=== PATIENT | male | born 1945 | race Caucasian/White ===

== ENCOUNTER 2017-04-14 08:00 | Inpatient (IN) ==
[2017-04-21] MEDS ORDERED: Lactated Ringers 1,000 ML PRIMARY IV ONE ×2 (05:59→09:00)
[2017-04-21] MEDS ORDERED: ceFAZolin Inj 2gm (Premix) 2 GM/50 ML BAG IV ONE ×2 (05:59→06:00)
[2017-04-21] MEDS ORDERED: LIDOCAINE W/ SODIUM BICARB 0.5 ML SYR ONE (05:59)
[2017-04-21] MEDS ORDERED: Lactated Ringers 1,000 ML PRIMARY IV SCH ×2 (06:00→07:15)
[2017-04-21] MEDS ORDERED: LIDOCAINE W/ SODIUM BICARB 0.5 ML SYR SUBD ONE (06:00)
[2017-04-21] MEDS ORDERED: BUPivacaine Liposome/PF (Exparel) Inj 20ml vial INFIL ONE ×2 (06:00→06:42)
[2017-04-21] MEDS ORDERED: Tranexamic Acid 1,000 MG in Sodium Chloride 0.9% 100 ML IV SCH (06:00)
[2017-04-21 06:19] LABS: BILIRUBIN,URINE NEGATIVE (NEG); CLARITY,URINE CLEAR (CLEAR); COLOR,URINE YELLOW (Y); GLUCOSE, URINE (UA) NEGATIVE (NEG); OCCULT BLOOD,URINE NEGATIVE (NEG); PROTEIN,URINE NEGATIVE (NEG); UROBILINOGEN,URINE 0.2 EU/dL (0.2)
[2017-04-21] MEDS ORDERED: Sodium Chloride 0.9% vial 40 ML ONE (06:42)
[2017-04-21] MEDS ORDERED: HEPARIN 10,000 UNIT/1 ML ONE (06:42)
[2017-04-21] MEDS ORDERED: Gentamicin Inj 40 MG/ML VIAL ONE ×2 (06:42→07:31)
[2017-04-21 06:45] LABS: URINE SAMPLE TYPE CLEAN CATCH URINE
[2017-04-21] MEDS ORDERED: Sodium Chloride 0.9% 500 ML ONE ×2 (06:49→11:35)
[2017-04-21] MEDS ORDERED: Sodium Chloride 0.9% 2,000 ML ONE (06:49)
[2017-04-21] MEDS ORDERED: fentaNYL Inj 100 MCG/2 ML VIAL IVP PRN (07:07)
[2017-04-21] MEDS ORDERED: Ondansetron ODT Tab 8 MG TAB PO PRN ×2 (07:07→13:33)
[2017-04-21] MEDS ORDERED: HYDROmorphone 2 MG/1 ML IVP PRN ×2 (07:07→13:33)
[2017-04-21] MEDS ORDERED: ATROPINE SULFATE 0.4 MG/1 ML VIAL IVP PRN (07:07)
[2017-04-21] MEDS ORDERED: ONDANSETRON 4 MG/2 ML VIAL IVP PRN ×2 (07:07→13:33)
[2017-04-21] MEDS ORDERED: NORMAL SALINE 10 ML SYRINGE FLUSH IVP PRN ×2 (07:07→13:33)
[2017-04-21] MEDS ORDERED: TRANEXAMIC ACID 1,000 MG / 10 ML VIAL ONE (07:22)
[2017-04-21] MEDS ORDERED: MIDAZOLAM 5 MG/1 ML ONE (07:24)
[2017-04-21] MEDS ORDERED: KETAMINE 100 MG/1 ML - 5 ML ONE (07:24)
[2017-04-21] MEDS ORDERED: PROPOFOL 10 MG/1 ML (200 MG/20 ML) VIAL IV ONE (07:24)
[2017-04-21] MEDS ORDERED: fentaNYL Inj 250 MCG/5 ML VIAL ONE ×2 (07:24→09:00)
[2017-04-21] MEDS ORDERED: ROCURONIUM 10 MG/1 ML - 5 ML VIAL IVP ONE (07:25)
[2017-04-21] MEDS ORDERED: Sodium Chloride 0.9% vial 10 ML ONE (07:30)
[2017-04-21] MEDS ORDERED: Ketorolac Inj 30 MG, Morphine Inj 5 MG, BUPivacaine Inj 0.25% PF 150 MG SPLASH ONE ×3 (07:30)
[2017-04-21] MEDS ORDERED: ePHEDrine Inj 50 MG/ML AMP ONE (08:07)
[2017-04-21] MEDS ORDERED: GLYCOPYRROLATE 0.2 MG/1 ML VIAL ONE (11:30)
[2017-04-21] MEDS ORDERED: NEOSTIGMINE 1 MG/1 ML - 10 ML ONE (11:30)
[2017-04-21] MEDS ORDERED: ESMOLOL HCL 100 MG/10 ML VIAL ONE (11:33)
[2017-04-21] MEDS ORDERED: ONDANSETRON 4 MG/2 ML VIAL ONE (12:11)
--- NOTE | 2017-04-21 12:27 | CRNA.PROGR ---
Anesthesia Time - - Start date: 04/21/17 End date: 04/21/17 - Procedure/Recovery Time Anesthesia : Time In: 07:50 Anesthesia : Time Out: 12:03 Anesthesia : Total Time: 253 - Total Anesthesia Time Total Anesthesia Time (minutes): 253 - Other Weight: 100.698 kg Height: 5 ft 11 in Body Mass Index (BMI): 30.9 Physical Status: P2 (Age greater than 70, HTN) Anesthesia Type: General Anesthesia : ET
--- NOTE | 2017-04-21 12:28 | CRNA.PROGR ---
Anesthesia Recovery Phase I - Post Anesthesia Evaluation Patient's Condition on Arrival in Phase I: Stable Patient's Condition on Arrival in Phase II: Stable Pain Level: 2 (Treated for nausea. Received his orthopat blood back. Vitals stable. Did well.)
[2017-04-21] MEDS ORDERED: CALCIUM CARBONATE 500 MG (TUMS) CHEWABLE TABLET PO PRN (13:33)
[2017-04-21] MEDS ORDERED: Prochlorperazine Tab 10 MG TAB PO PRN (13:33)
[2017-04-21] MEDS ORDERED: diphenhydrAMINE 25 MG CAPSULE PO PRN (13:33)
[2017-04-21] MEDS ORDERED: LIDOCAINE HCL 2 % 10 ML JELLY URO-JECT TOPICAL PRN (13:33)
[2017-04-21] MEDS ORDERED: MAG HYDROX/AL HYDROX/SIMETH 30 ML SUSP PO PRN (13:33)
[2017-04-21] MEDS ORDERED: ACETAMINOPHEN 325 MG TABLET PO PRN (13:33)
[2017-04-21] MEDS ORDERED: BISACODYL 10 MG SUPPOSITORY RECTAL PRN (13:33)
--- NOTE | 2017-04-21 14:43 | ORTHO.OP ---
- - -: See Dictated Operative Report Procedure Codes - Hip Procedures Primary Hip Procedure: 41809 : SHOBHA (Natalia SAM assisted)
[2017-04-21] MEDS: HYDROcodone-APAP 7.5 MG-325 MG TABLET PO PRN ×2 (14:45→23:32)
--- NOTE | 2017-04-21 14:48 | ORTHO.PROG ---
Last Taken Vital Signs: Vital Signs - Last Taken Temperature 97.6 F 04/21/17 14:05 Pulse Rate 73 04/21/17 14:27 Respiratory Rate 18 04/21/17 14:27 Blood Pressure 163/93 04/21/17 14:27 Pulse Ox 96 04/21/17 14:27 Subjective: Patient notes hip feels numb Objective: Dressings clean and dry, NV intact Laboratory Results 04/21/17 04/21/17 Range/Units 06:10 06:30 Ur Collection Type Clean catch urine Urine Color Yellow (Y) Urine Clarity Clear (CLEAR) Urine pH 5.0 (5.0-8.5) Ur Specific [place] 1.025 (1.005-1.030) Urine Protein Negative (NEG) mg/dl Urine Glucose (UA) Negative (NEG) mg/dL Urine Ketones Negative (NEG) Urine Occult Blood Negative (NEG) Urine Nitrate Negative (NEG) Urine Bilirubin Negative (NEG) Urine Urobilinogen 0.2 (0.2) EU/dL Ur Leukocyte Esterase Negative (NEG) Blood Type A POSITIVE Antibody Screen Negative Vital Signs (24 hrs) Temp Pulse Pulse Resp BP BP Pulse Ox 04/21/17 14:27 73 18 163/93 96 04/21/17 14:05 97.6 F 65 16 163/82 98 04/21/17 13:50 97.6 F 69 16 166/93 98 04/21/17 13:45 97.5 F 70 18 143/80 97 04/21/17 13:35 97.5 F 70 18 143/80 97 04/21/17 13:15 97.4 F 90 20 152/78 98 04/21/17 13:05 64 20 147/78 98 04/21/17 12:55 63 15 157/83 98 04/21/17 12:45 66 13 152/76 98 04/21/17 12:38 76 04/21/17 12:35 67 16 166/82 98 04/21/17 12:25 90 21 160/90 100 04/21/17 12:20 96.8 F 75 15 150/84 97 04/21/17 12:10 106 H 28 H 131/99 91 04/21/17 12:05 87 30 H 140/85 97 04/21/17 12:00 97.8 F 95 29 H 123/78 96 04/21/17 06:26 98.3 F 78 16 173/107 96 Intake and Output - 8hrs 04/20/17 04/21/17 04/21/17 04/21/17 21:59 05:59 13:59 21:59 Intake: IV 4100 / 4100 Intake, Blood Product Amount 200 / 200 Output: Output, Drainage Amount 35 / 35 l hip 35 / 35 Output, Estimated Blood Loss 625 / 625 Amount Other: Drains Hemovac Negative Pressure Drain l hip Hemovac Weight 100.698 kg Weight Measurement Method Standing Scale Assessment: Left anterior total hip replacement Plan: Continue with pain control Anticoagulation with aspirin and pneumatics PWB 50 lbs on left for couple weeks
--- NOTE | 2017-04-21 15:03 | CONSULT ---
Consult Note - Consult Consult Date: 04/21/17 Reason for Consult: PostOp Consulation : Ortho Requesting Physician: Dr. Langley Primary Care Provider: HERBERT ASKEW HPI - History of Present Illness Date of Service: 04/21/17 Time of Service: 14:45 Chief Complaint: left hip pain History of Present Illness: This is a very pleasant 71 YO male that resides in [place], [place], with HTN, who presented with left hip pain and an anterior approach hip replacement. Please see Dr. Langley's post operative note regarding that procedure. The hospitalist service was consulted to help advise on and follow blood pressures. The patient denies any other medical issues. There are no complaints of chest pain, shortness of breath, or nausea or vomiting post operatively. The patient states his left hip is numb and he has not had any pain thus far. He had some dry heaves just after waking up and it has resolved now. No history of heart disease or kidney problems or stroke in the past. Patient tried Aleve, has had persistent pain over the last year, which is why proceeded with a hip replacement. He states he sees Dr. Kimball in [place], [place]. Outside of hypertension, patient does not have any other medical issues. Past Medical History Medical History: 1. Hypertension Surgical History: 1. Left hip surgery today. 2. Hernia repair. 3. History of vasectomy. Pertinent Family History: Father of cerebral hemorrhage in his 60s. Mother in her 90s due to heart attack. Past Social History: Does not smoke or drink. for 50 years. Has 2 healthy children. Used to work in the [employer] in [place], [place]. Retired. Tobacco Use: Never Smoker In the Past 12 Months, Have Used or Abuse Any of the Following Substance: None Alcohol Use: None Review of Systems - Respiratory Respiratory: REPORTS: Negative System Review - Cardiovascular Cardiovascular: REPORTS: Negative System Review - Gastrointestinal Gastrointestinal / Abdominal: REPORTS: Negative System Review, Other (Resolved dry heaves post surgery) - Genitourinary Genitourinary: REPORTS: Negative System Review - Musculoskeletal Musculoskeletal: REPORTS: See HPI - Neurological Neurologic: REPORTS: Negative System Review Medication / Allergies Home Medications: Home Medications 3 Medication Instructions Recorded Confirmed Type multivitamin tablet 1 tab PO DAILY 02/13/17 04/21/17 History glucosamine sulfate 500 mg tablet 1,000 mg PO BID tab 03/17/17 04/21/17 History naproxen sodium 220 mg tablet 440 mg PO BID tab 03/17/17 04/21/17 History hydrochlorothiazide 12.5 mg capsule 12.5 mg PO QDAY cap 04/13/17 04/21/17 History Allergies/Adverse Reactions: Allergies 3 Allergy/AdvReac Type Severity Reaction Status Date / Time No Known Allergies Allergy Verified 04/21/17 13:38 Exam - Vitals Vital Signs: Vital Signs Temperature 97.6 F Temperature Source Temporal Artery Scan Pulse Rate [Pulse Oximeter] 73 Pulse Rate 90 Respiratory Rate 18 Blood Pressure [Left Arm] 163/93 Blood Pressure 152/78 Pulse Ox 96 Oxygen Flow Rate 2 Oxygen Delivery Method Nasal Cannula Height 5 ft 11 in Weight 222 lb - General General Appearance: No Acute Distress, Cooperative - Head Head Exam: Normal Inspection, Normocephalic, Atraumatic - Eye Eye Exam: POSITIVE: No Scleral Icterus - ENT ENT Exam: POSITIVE: Mucous Membranes Moist - Neck Neck Exam: Normal Inspection - Respiratory Respiratory Exam: POSITIVE: Clear to Auscultation - Bilaterally, Breathing Non Labored - Cardiovascular Cardiovascular Exam: POSITIVE: RRR, No Murmur, No Clicks, No Gallops, No Rubs, No JVD - GI/Abdominal GI/Abdominal Exam: POSITIVE: Normal Bowel Sounds, Non Tender, Non Distended, Soft - Rectal Rectal Exam: POSITIVE: Deferred - External Exam: POSITIVE: Deferred Exam: POSITIVE: Deferred - Extremities Extremities Exam: POSITIVE: No Clubbing Present, No Edema Present, No Cyanosis Present Additional Extremities Exam Details: Left hip is dressed, dressing is clean, dry, intact - Neurological Neurological Exam: POSITIVE: Alert, Oriented x 3, No Facial Droop, Speech Intact / Clear - Psychiatric Psychiatric Exam: POSITIVE: Normal Affect, Normal Mood Results - Labs Additional Lab Results: Laboratory Results 04/21/17 04/21/17 Range/Units 06:10 06:30 Ur Collection Type Clean catch urine Urine Color Yellow (Y) Urine Clarity Clear (CLEAR) Urine pH 5.0 (5.0-8.5) Ur Specific [place] 1.025 (1.005-1.030) Urine Protein Negative (NEG) mg/dl Urine Glucose (UA) Negative (NEG) mg/dL Urine Ketones Negative (NEG) Urine Occult Blood Negative (NEG) Urine Nitrate Negative (NEG) Urine Bilirubin Negative (NEG) Urine Urobilinogen 0.2 (0.2) EU/dL Ur Leukocyte Esterase Negative (NEG) Blood Type A POSITIVE Antibody Screen Negative Assessment and Plan - Patient Problems (1) Hypertension Current Visit: Yes Status: Acute Code(s): I10 - Essential (primary) hypertension Qualifiers: Hypertension type: essential hypertension Qualified Code(s): I10 - Essential (primary) hypertension (2) Arthritis of left hip Current Visit: No Status: Acute Code(s): M16.12 - Unilateral primary osteoarthritis, left hip - Assessment / Plan Additional Assessment/Plan Details: I think at this point, be okay to continue hydrochlorothiazide, and I will make sure it's ordered. We'll monitor blood pressures. Pain management for left hip. DVT prophylaxis as per Dr. Langley. PT and OT. Labs ordered for tomorrow. Thank you for this consult, will be our pleasure to continue to monitor patient' s blood pressures and help advise on management through the patient's hospital stay.
[2017-04-21] MEDS: ceFAZolin Inj 2gm (Premix) 2 GM/50 ML BAG IV SCH ×2 (16:09→23:33)
[2017-04-21] MEDS: Lactated Ringers 1,000 ML PRIMARY IV SCH (19:58)
[2017-04-21] MEDS: DOCUSATE 100 MG CAPSULE PO SCH (20:00)
[2017-04-21] MEDS ORDERED: ceFAZolin Inj 2gm (Premix) 2 GM/50 ML BAG IV SCH (21:30)
--- NOTE | 2017-04-22 00:25 | DI ---
XR HIP COMPLETE MIN 2VW U/L,04/21/2017 11:47 AM: Clinical History: Status post left total hip arthroplasty. Previous Exam: February 03, 2017 Findings: AP and crosstable views of the left hip are obtained, and demonstrate postsurgical changes consistent with a left total hip arthroplasty. There is near complete loss of the joint space of the right hip with osteophyte formation. There is m ild osteopenia. Overlying skin annemarie are seen. Impression: Status post left total hip arthroplasty. Advanced degenerative changes of the right hip.
[2017-04-22 05:45] LABS: Hematocrit [HCT] 34.2 % (42.0-52.0); Hemoglobin [HGB] 11.1 g/dL (14.0-18.0); MEAN CORPUSCULAR HEMOGLOBIN 29.5 PG (27-31); MEAN CORPUSCULAR HGB CONC 32.5 g/dL (33-37); MEAN PLATELET VOLUME 9.8 FL (7.4-12.2); RED BLOOD COUNT 3.76 10^6/uL (4.70-6.10)
[2017-04-22 05:56] LABS: BLOOD UREA NITROGEN 20 mg/dL (7-22)
[2017-04-22] MEDS: HYDROcodone-APAP 7.5 MG-325 MG TABLET PO PRN ×5 (06:12→22:01)
[2017-04-22] MEDS: HYDROCHLOROTHIAZIDE 12.5 MG CAPSULE PO SCH (07:08)
[2017-04-22] MEDS: Lactated Ringers 1,000 ML PRIMARY IV SCH (07:08)
--- NOTE | 2017-04-22 07:59 | ORTHO.PROG ---
Last Taken Vital Signs: Vital Signs - Last Taken Temperature 99.1 F 04/22/17 07:16 Pulse Rate 100 04/22/17 07:16 Respiratory Rate 16 04/22/17 07:16 Blood Pressure 122/77 04/22/17 07:16 Pulse Ox 95 04/22/17 07:16 Subjective: Patient with good pain control Objective: Dressings are clean and dry. Hemovac with what sounds like a small slow leak. Motor and sensory exam of the lower extremity is normal with no calf, popliteal adductor hiatus or pain. No significant swelling or edema Laboratory Results 04/22/17 04/22/17 Range/Units 05:30 05:30 WBC 13.87 H (4.8-10.8) 10^3/uL RBC 3.76 L (4.70-6.10) 10^6/uL Hgb 11.1 L (14.0-18.0) g/dL Hct 34.2 L (42.0-52.0) % MCV 91.0 H (80-90) FL MCH 29.5 (27-31) PG MCHC 32.5 L (33-37) g/dL RDW Std Deviation 43.1 (39-50) fL RDW Coeff of Mahesh 13.4 (11.5-14.5) % Plt Count 175 (140-350) 10*3/uL MPV 9.8 (7.4-12.2) FL Sodium 134 L (135-145) meq/L Potassium 4.1 (3.8-5.2) meq/L Chloride 103 (98-112) meq/L Carbon Dioxide 24 (23-33) meq/L Anion Gap 7 (5-20) BUN 20 (7-22) mg/dL Creatinine 0.8 (0.70-1.50) mg/dL BUN/Creatinine Ratio 25.00 H (6-20) Glucose 139 H (78-110) mg/dL Calculated Osmolality 282.0 (267-292) mOsm/kg Calcium 8.0 L (8.7-10.7) mg/dL Intake and Output - 8hrs 04/21/17 04/21/17 04/22/17 04/22/17 13:59 21:59 05:59 13:59 Intake: IV 4100 / 4100 340 / 340 989 / 989 Intake Oral Amount 1800 / 1800 1000 / 1000 Intake, Blood Product Amount 200 / 200 Output: Output, Drainage Amount 35 / 35 90 / 90 230 / 230 Left Hip 90 / 90 230 / 230 l hip 35 / 35 Output, Urine Amount 250 / 250 750 / 750 Output, Estimated Blood Loss 625 / 625 Amount Other: Percent Meal Consumed Dinner Refused Drains Hemovac Negative Pressure Drain l hip Hemovac Weight 100.698 kg 103.147 kg Weight Measurement Method Standing Scale Standing Scale Vital Signs (24 hrs) Temp Pulse Pulse Pulse Resp BP BP 04/22/17 07:16 99.1 F 100 16 122/77 04/22/17 04:20 04/22/17 04:02 97.4 F 100 20 132/98 04/22/17 00:14 97.6 F 79 20 152/90 04/21/17 20:09 97.0 F 91 20 139/88 04/21/17 19:00 16 04/21/17 15:47 97.4 F 94 20 141/86 04/21/17 15:09 91 16 157/90 04/21/17 14:46 04/21/17 14:27 73 18 163/93 04/21/17 14:05 97.6 F 65 16 163/82 04/21/17 13:50 97.6 F 69 16 166/93 04/21/17 13:45 97.5 F 70 18 143/80 04/21/17 13:35 97.5 F 70 18 143/80 04/21/17 13:34 70 18 04/21/17 13:15 97.4 F 90 20 152/78 04/21/17 13:05 64 20 147/78 04/21/17 12:55 63 15 157/83 04/21/17 12:45 66 13 152/76 04/21/17 12:38 76 04/21/17 12:35 67 16 166/82 04/21/17 12:25 90 21 160/90 04/21/17 12:20 96.8 F 75 15 150/84 04/21/17 12:10 106 H 28 H 131/99 04/21/17 12:05 87 30 H 140/85 04/21/17 12:00 97.8 F 95 29 H 123/78 Pulse Ox 04/22/17 07:16 95 04/22/17 04:20 92 0207/18 04:02 94 04/22/17 00:14 97 04/21/17 20:09 96 04/21/17 19:00 04/21/17 15:47 94 04/21/17 15:09 92 04/21/17 14:46 92 04/21/17 14:27 96 04/21/17 14:05 98 04/21/17 13:50 98 04/21/17 13:45 97 04/21/17 13:35 97 04/21/17 13:34 04/21/17 13:15 98 04/21/17 13:05 98 04/21/17 12:55 98 04/21/17 12:45 98 04/21/17 12:38 04/21/17 12:35 98 04/21/17 12:25 100 04/21/17 12:20 97 04/21/17 12:10 91 04/21/17 12:05 97 04/21/17 12:00 96 Assessment: Left anterior total hip replacement doing well Plan: At this point we are going to switch the suction device out from a new kit since it seems like the pancake is slowly leaking out. We will likely only keep this for another 6-8 hours before we remove the drain. Think we want to keep this in place at the current time patient will progress with physical therapy and occupational therapy pain control as been good with oral medications. We will continue with DVT prophylaxis.
[2017-04-22] MEDS: POLYETHYLENE GLYCOL 3350 17 GM POWDER PO SCH (08:32)
[2017-04-22] MEDS: DOCUSATE 100 MG CAPSULE PO SCH ×2 (08:33→22:01)
[2017-04-22] MEDS: ASPIRIN 325 MG EC TABLET PO SCH ×2 (08:33→22:01)
[2017-04-22] MEDS: Multivitamin Tab 1 TAB PO SCH (08:33)
--- NOTE | 2017-04-22 10:16 | PTI REPORT ---
Thank you for the referral of Paul Ochoa. He was seen on 04/21/17 for an inpatient evaluation status post left anterior total hip arthroplasty. SUBJECTIVE: The patient is a 71-year-old male who was referred by Dr. Langley secondary to a left anterior approach total hip arthroplasty. The patient has four stairs at home that he must negotiate. He does have a that will be available to him 06/10 when he does go home. PAST MEDICAL HISTORY: Past medical history can be found in the patient's medical record. OBJECTIVE FINDINGS: Pain: The patient rates his pain as a 2/10 on the verbal analog scale (0=no pain , 10=worst pain). Bed mobility: The patient was able to come from supine to sit with minimal assistance. Transfers: The patient was able to transfer from sit to stand with minimal assistance. Ambulation: We discussed the patient's partial weight-bearing status. He has his own walker. We did provide one without wheels to start with. He ambulated to the restroom with partial weight-bearing precautions and back. He was able to stand for a couple of minutes. ASSESSMENT: The patient is an excellent candidate for rehab and will do very well in the long term care pharmacist and short term. Problem List: Pain in the left hip Decreased passive and active range of motion in the left hip Decreased strength in the left hip Short-Term Goals: To be met by discharge from inpatient: Patient will be able to transfer from bed to stand independently. Patient will be able to ambulate approximately 100 feet with walker, weight- bearing as tolerated. Patient will be able to ascend and descend five stairs with walker, weight- bearing as tolerated. Long-Term Goals: To be met following discharge from inpatient: Patient may be seen by outpatient physical therapy. TREATMENT PLAN: Patient will be seen B.I.D during the week and one time per day over the weekend as an inpatient to address the above goals and objectives. INITIAL TREATMENT: Treatment today consisted of the initial evaluation. The patient was very interested in going to the restroom to void. With minimal assistance the patient came to a standing position; his pain remained the same. He ambulated to the restroom with partial weight-bearing precautions and back. He was able to stand for a couple of minutes. He was returned to his bed in good condition. DEMETRA
--- NOTE | 2017-04-22 13:02 | CRNA.PROGR ---
Anesthesia Note - Progress Notes Anesthesia Progress Note: Lying in bed watching TV. Awake, alert, cheerful. Describes pain as under control. Has been down to Physical Therapy, ambulated. Never had to be catheterized. He describes urine output as "Frequent". Laboratory Results 04/22/17 04/22/17 Range/Units 05:30 05:30 WBC 13.87 H (4.8-10.8) 10^3/uL RBC 3.76 L (4.70-6.10) 10^6/uL Hgb 11.1 L (14.0-18.0) g/dL Hct 34.2 L (42.0-52.0) % MCV 91.0 H (80-90) FL MCH 29.5 (27-31) PG MCHC 32.5 L (33-37) g/dL RDW Std Deviation 43.1 (39-50) fL RDW Coeff of Mahesh 13.4 (11.5-14.5) % Plt Count 175 (140-350) 10*3/uL MPV 9.8 (7.4-12.2) FL Sodium 134 L (135-145) meq/L Potassium 4.1 (3.8-5.2) meq/L Chloride 103 (98-112) meq/L Carbon Dioxide 24 (23-33) meq/L Anion Gap 7 (5-20) BUN 20 (7-22) mg/dL Creatinine 0.8 (0.70-1.50) mg/dL BUN/Creatinine Ratio 25.00 H (6-20) Glucose 139 H (78-110) mg/dL Calculated Osmolality 282.0 (267-292) mOsm/kg Calcium 8.0 L (8.7-10.7) mg/dL Vital Signs - Last Taken Temperature 99.1 F 04/22/17 12:35 Pulse Rate 114 H 04/22/17 12:35 Respiratory Rate 18 04/22/17 12:35 Blood Pressure 148/81 04/22/17 12:35 Pulse Ox 94 04/22/17 12:35 Denies breathing difficulties or nausea. No apparent anesthetic difficulties.
--- NOTE | 2017-04-22 13:52 | PDOC(PROG) ---
Date and Time of Service: 04/22/2017, 1445 Interval History: No complaints of chest pain or shortness of breath. It was noticed that he was tachycardic during physical therapy, but he does not complain of palpitations or chest pain or syncopal or presyncopal episodes. He has not had any of that prior to surgery. No fevers or chills. He does state that he's had 6-8 months of constipation. He'll have 3-4 days of constipation and then he notices he'll have a diarrheal bowel movement. He has not had any screening colonoscopy or thyroid testing done to my knowledge. In terms of the hip surgery, he is doing well with therapy to this point. His blood sugar was notably elevated, we'll get hemoglobin A1c tomorrow. He states his pre-surgery labs were normal. Objective : Data - Labs CBC and BMP: 04/22/17 05:30 04/22/17 05:30 Objective : Exam - General General Appearance: No Acute Distress, Cooperative Additional General Exam Details: Vital Signs - Last Taken Temperature 99.1 F 04/22/17 12:35 Pulse Rate 114 H 04/22/17 12:35 Respiratory Rate 18 04/22/17 12:35 Blood Pressure 148/81 04/22/17 12:35 Pulse Ox 94 04/22/17 12:35 - Eye Eye Exam: No Scleral Icterus - ENT ENT Exam: Mucous Membranes Moist - Respiratory Respiratory Exam: Clear to Auscultation - Bilaterally, Breathing Non Labored - Cardiovascular Cardiovascular Exam: No Murmur, No Clicks, No Gallops, No Rubs, Tachycardia - GI/Abdominal GI/Abdominal Exam: Normal Bowel Sounds, Non Tender, Non Distended, Soft - Extremities Extremities Exam: No Clubbing Present, No Edema Present, No Cyanosis Present - Neurological Neurological Exam: Alert, Oriented x 3, No Facial Droop, Speech Intact / Clear - Integumentary Additional Integumentary Exam Details: Normal skin turgor. Assessment and Plan - Patient Problems (1) Tachycardia Current Visit: Yes Status: Acute Code(s): R00.0 - Tachycardia, unspecified (2) Hypertension Current Visit: Yes Status: Acute Code(s): I10 - Essential (primary) hypertension Qualifiers: Hypertension type: essential hypertension Qualified Code(s): I10 - Essential (primary) hypertension (3) Arthritis of left hip Current Visit: No Status: Acute Code(s): M16.12 - Unilateral primary osteoarthritis, left hip (4) Chronic constipation Current Visit: Yes Status: Chronic Code(s): K59.09 - Other constipation - Assessment / Plan Additional Assessment/Plan Details: Check a TSH and free T4 with the chronic constipation, the patient should also have a colonoscopy as he has not had any screening for colon cancer per his history. He states he has a family history of chronic constipation. We'll arrange an appointment to evaluate for screening colonoscopy and chronic constipation in the outpatient setting in about 6 weeks to allow the patient to fill up from his hip surgery first. I will get a hemoglobin A1c in the morning. The tachycardia may be related to pain. But we will monitor the patient with telemetry to make sure we are not seeing anything that might suggest a tachybradycardia syndrome. He does not have any symptoms of syncopal or presyncopal nature. Doubt pulmonary emboli or DVT. No evidence of infection. He is not dehydrated on exam and appears euvolemic. PT and OT. DVT prophylaxis as per orthopedics.
--- NOTE | 2017-04-22 15:21 | PT.PROG ---
Progress Note Progress Note: S. Patient stated that he is feeling a little dizzy this afternoon. O. Patient ambulated 30 feet to the wheelchair and was wheeled to the therapy gym where he had heat and performed supine exercises in the form of; heel slides , quad sets, ankle pumps (red), short arc quads, seated long arc quads, heel toe raises and sit to stands all x 10 bilaterally. Patient ambulated 80 feet to the wheelchair and was returned to his room where he was left on the edge of bed with alarm and call light. A. Patient tolerated therapy fair, he requires min assist with supine to sit transfer, he was able to perform all exercises with no complaints. He would continue to benefit from skilled therapy to increase strength, mobility and endurance. P. Continue POC.
[2017-04-23] MEDS: HYDROcodone-APAP 7.5 MG-325 MG TABLET PO PRN ×3 (01:35→20:25)
[2017-04-23] MEDS: HYDROCHLOROTHIAZIDE 12.5 MG CAPSULE PO SCH (06:44)
[2017-04-23] MEDS ORDERED: LIDOCAINE HCL 2 % 10 ML JELLY URO-JECT TOPICAL PRN (07:14)
[2017-04-23 07:16] LABS: Hematocrit [HCT] 34.8 % (42.0-52.0); Hemoglobin [HGB] 11.4 g/dL (14.0-18.0); MEAN CORPUSCULAR HEMOGLOBIN 30.1 PG (27-31); MEAN CORPUSCULAR HGB CONC 32.8 g/dL (33-37); MEAN CORPUSCULAR VOLUME 91.8 FL (80-90); MEAN PLATELET VOLUME 10.6 FL (7.4-12.2); RED BLOOD COUNT 3.79 10^6/uL (4.70-6.10)
[2017-04-23 08:15] LABS: BLOOD UREA NITROGEN 20 mg/dL (7-22)
[2017-04-23] MEDS: Multivitamin Tab 1 TAB PO SCH (08:50)
[2017-04-23] MEDS: BISACODYL 5 MG TABLET PO PRN (08:50)
[2017-04-23] MEDS: DOCUSATE 100 MG CAPSULE PO SCH ×2 (08:50→20:25)
[2017-04-23] MEDS: POLYETHYLENE GLYCOL 3350 17 GM POWDER PO SCH (08:50)
[2017-04-23] MEDS: ASPIRIN 325 MG EC TABLET PO SCH (08:50)
[2017-04-23] MEDS: TAMSULOSIN 0.4 MG CAPSULE PO SCH (08:50)
[2017-04-23 09:09] LABS: HEMOGLOBIN A1C 5.69 % (4.2-6.0)
--- NOTE | 2017-04-23 09:31 | OTI REPORT ---
Thank you for the referral of Paul Ochoa. He was seen on 04/22/17 for an occupational therapy inpatient evaluation status post left total hip arthroplasty. SUBJECTIVE: The patient is a 71-year-old male who had a total hip arthroplasty. Prior to admission the patient lived in [place] and was independent with all of his activities of daily living and functional activities. He states he was independent with dressing himself and getting around his home as well as driving. The patient reports that he has a higher toilet as well as a bathtub/ shower combination. The patient does not know if he wants a shower chair yet. PAST MEDICAL HISTORY: Past medical history can be found in the patient's medical record. OBJECTIVE FINDINGS: Bed mobility: Today the patient was able to come from supine to sit with min assist. Activities of daily living: While sitting edge of bed we attempted dressing tasks. The patient required min assist. He was issued a artist model and a sock aide and instructed in their use. The patient was educated to dress his left lower extremity first. He needed min assist with the sock aide. The patient was also issued a long handled shoe horn as well as a bath sponge for independence with ADLs at home. ASSESSMENT: The patient would benefit from at least one more session to go over equipment use. Short-Term Goals: To be met by discharge from inpatient: Patient will be able to dress self independently with use of adaptive equipment. Patient will be able to improve his functional transfers to stand by assist. Patient will demonstrate good knowledge of hip precautions during all functional transfers and ADLs. Long-Term Goals: To be met following discharge from inpatient: Patient will return home, demonstrating safety and independence with all functional activities of daily living and transfers. TREATMENT PLAN: Patient will be seen B.I.D during the week and one time per day over the weekend as an inpatient to address the above goals and objectives. INITIAL TREATMENT: Treatment today consisted of the initial evaluation followed by bed mobility, instruction in adaptive equipment, and trial of adaptive equipment. The patient still needed min assist with the artist model and with his balance when standing. The patient was educated in his hip precautions. He did not know that he could not complete straight leg raises per his report. MTDD
--- NOTE | 2017-04-23 13:25 | ORTHO.PROG ---
Last Taken Vital Signs: Vital Signs - Last Taken Temperature 97.8 F 04/23/17 11:05 Pulse Rate 108 H 04/23/17 11:05 Respiratory Rate 20 04/23/17 11:05 Blood Pressure 167/95 04/23/17 11:05 Pulse Ox 95 04/23/17 11:05 Subjective: Patient notes if he is good no chest pain shortness of breath benefits and having an elevated pulse rate Objective: Examination shows that the patient has his dressing in place there is no evidence of infection there is no active drainage his PREVENA suction dressing is in place with no active issues he denies any calf, popliteal adductor hiatus or thigh pain. Laboratory Results 04/23/17 04/23/17 04/23/17 Range/Units 06:59 06:59 06:59 WBC 16.56 H (4.8-10.8) 10^3/uL RBC 3.79 L (4.70-6.10) 10^6/uL Hgb 11.4 L (14.0-18.0) g/dL Hct 34.8 L (42.0-52.0) % MCV 91.8 H (80-90) FL MCH 30.1 (27-31) PG MCHC 32.8 L (33-37) g/dL RDW Std Deviation 44.3 (39-50) fL RDW Coeff of Mahesh 13.6 (11.5-14.5) % Plt Count 188 (140-350) 10*3/uL MPV 10.6 (7.4-12.2) FL Sodium 136 (135-145) meq/L Potassium 4.1 (3.8-5.2) meq/L Chloride 100 (98-112) meq/L Carbon Dioxide 27 (23-33) meq/L Anion Gap 9 (5-20) BUN 20 (7-22) mg/dL Creatinine 0.8 (0.70-1.50) mg/dL BUN/Creatinine Ratio 25.00 H (6-20) Glucose 134 H (78-110) mg/dL Mean Blood Glucose 103.477 mg/dL Hemoglobin A1c 5.69 (4.2-6.0) % Calculated Osmolality 286.0 (267-292) mOsm/kg Calcium 8.6 L (8.7-10.7) mg/dL TSH (0.2700-4.2000) uIU/mL Free T4 (0.93-1.71) ng/dL 04/23/17 Range/Units 06:59 WBC (4.8-10.8) 10^3/uL RBC (4.70-6.10) 10^6/uL Hgb (14.0-18.0) g/dL Hct (42.0-52.0) % MCV (80-90) FL MCH (27-31) PG MCHC (33-37) g/dL RDW Std Deviation (39-50) fL RDW Coeff of Mahesh (11.5-14.5) % Plt Count (140-350) 10*3/uL MPV (7.4-12.2) FL Sodium (135-145) meq/L Potassium (3.8-5.2) meq/L Chloride (98-112) meq/L Carbon Dioxide (23-33) meq/L Anion Gap (5-20) BUN (7-22) mg/dL Creatinine (0.70-1.50) mg/dL BUN/Creatinine Ratio (6-20) Glucose (78-110) mg/dL Mean Blood Glucose mg/dL Hemoglobin A1c (4.2-6.0) % Calculated Osmolality (267-292) mOsm/kg Calcium (8.7-10.7) mg/dL TSH 0.785 (0.2700-4.2000) uIU/mL Free T4 1.17 (0.93-1.71) ng/dL Assessment: Left anterior total hip replacement doing well Anemia Urinary retention/past history of urinary retention around surgery Plan: Patient from an orthopedic standpoint seems to be doing well. Patient has had an intermittently elevated pulse and there is a concern about possible intermittent showering and lungs and CT scan has been ordered to rule out any evidence of pulmonary embolism. As far as the urinary changes. He is have this problem in the past 20 placed a Cheek this morning and we'll keep this in for a week have started him on Flomax and then we'll discontinue the catheter. We will have the patient continue with the PREVENA dressing at the current time until follow-up.
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
[2017-04-23 15:12] LABS: BASOPHILS # (AUTO) 0.02 10*3/UL; BASOPHILS % (AUTO) 0.1 % (0-1); EOSINOPHILS # (AUTO) 0.16 10*3/UL; Hematocrit [HCT] 33.2 % (42.0-52.0); Hemoglobin [HGB] 10.9 g/dL (14.0-18.0); LYMPHOCYTES # (AUTO) 1.59 10*3/uL; MEAN CORPUSCULAR HEMOGLOBIN 30.2 PG (27-31); MEAN CORPUSCULAR HGB CONC 32.8 g/dL (33-37); MEAN PLATELET VOLUME 9.9 FL (7.4-12.2); MONOCYTES # (AUTO) 1.63 10*3/UL (0.3-0.8); MONOCYTES % (AUTO) 10.6 % (5-15); NEUTROPHILS # (AUTO) 11.94 10*3/UL; NEUTROPHILS % (AUTO) 77.7 % (50-80); RED BLOOD COUNT 3.61 10^6/uL (4.70-6.10)
[2017-04-23 15:18] LABS: PLATELET MORPHOLOGY COMMENT NORMAL MORPHOLOGY (NORM); RBC MORPHOLOGY COMMENT NORMAL MORPHOLOGY (NORM); WBC MORPHOLOGY COMMENT NORMAL MORPHOLOGY (NORM)
--- NOTE | 2017-04-23 15:44 | PT AM DAY ---
Diagnosis : Left Total Hip Arthroplasty AM - Physical Therapy S: The patient reports no new changes. O: The patient ambulated all the way to the therapy department after participating with occupational therapy. He received an application of moist heat pack x20 minutes including set up to the left hip. We worked on some transfer techniques and mat mobility. We worked on sit to stands and practiced stepping up on a 6" box. We worked on transfers and he was able to ambulate six steps in the hallway with verbal cueing. A: The patient is a little bit impulsive at times, but when he pays attention he does well. He does have plans to go to [place] with his and his daughter broadcast producer for help. Under these conditions he will probably be quite safe. He is currently at a catheter place and has some other medical issues that may detain him from leaving today. P: Continue seeing patient BID during the week and one time per day over the weekend for transfers, ambulation, and range of motion/strengthening exercises. DEMETRA
[2017-04-23] MEDS: ENOXAPARIN SODIUM 100 MG/1 ML SYRINGE SUBCUT SCH (15:47)
--- NOTE | 2017-04-23 18:25 | DI ---
CT [facility],04/23/2017 11:08 AM: Clinical History: Tachycardia status post surgery. Rule out pulmonary embolism. Previous Exam: None at this facility. Findings: Multiple helically acquired CT images are obtained through the chest following a CT angiogram protoco l, and demonstrate a small filling defect within the left posterior lower lobe branch of the pulmonar y arteries consistent with a small pulmonary embolism. There is subsegmental atelectasis in the lung bases. There is dense pleural calcifications involving the posterior right pleura. There is calcified granuloma within the right lung base. The aorta is unremarkable. Impression: Small left lower lobe branch pulmonary embolism.
--- NOTE | 2017-04-23 18:54 | PDOC(PROG) ---
"Date and Time of Service: 04/23/2017, 1850 Interval History: No complains of chest pain or shortness breath. Still requiring minimal oxygen. Still tachycardic type CT scan and found small pulmonary emboli in left lobe of lung. I disclosed and discussed with patient. The patient and I spoke in depth regarding Coumadin versus Xarelto versus Eliquis, including all risks and benefits, risks being bleeding complications and possible pitfalls of not being able to reverse bleeding with antidotes, and benefits cream treatment of blood clot, lack of drug interactions, and ease of therapy in terms of lab monitoring. The patient's life is present as well. They feel that based on her frontal situation, they would offer Coumadin at this time. | Discussed with orthopedics, and we are a little nervous about potential bleeding so we will keep the patient. While initiating therapy for pulmonary emboli. The patient for close that is low the knee DVT in relation to a hernia surgery in the past. He states his hip pain is controlled. And is doing well with therapy. Was written for the Cheek catheter last night but finally did consent and agreed to have it placed. No results on constipation yet, but somewhat reluctant on enema. Objective : Data - Labs CBC and BMP: 04/23/17 15:10 04/23/17 06:59 Objective : Exam - General General Appearance: No Acute Distress, Cooperative Additional General Exam Details: Vital Signs (24 hrs) Temp Pulse Pulse Resp BP Pulse Ox 04/23/17 15:57 98.3 F 112 H 19 153/93 96 04/23/17 15:00 115 H 04/23/17 11:05 97.8 F 108 H 20 167/95 95 04/23/17 11:00 105 H 04/23/17 07:12 97.6 F 97 20 173/92 94 04/23/17 07:00 97 04/23/17 04:35 98.2 F 103 H 22 149/87 95 04/23/17 03:30 90 04/23/17 03:00 104 H 04/22/17 23:00 98.5 F 88 88 20 153/82 93 04/22/17 19:55 98.9 F 106 H 21 141/90 91 04/22/17 19:30 105 H 97 - Eye Eye Exam: No Scleral Icterus - Respiratory Respiratory Exam: Clear to Auscultation - Bilaterally, Breathing Non Labored - Cardiovascular Cardiovascular Exam: RRR, No Murmur, No Clicks, No Gallops, No Rubs, No JVD - GI/Abdominal GI/Abdominal Exam: Normal Bowel Sounds, Non Tender, Non Distended, Soft - Extremities Extremities Exam: No Clubbing Present, No Edema Present, No Cyanosis Present Additional Extremities Exam Details: Right hip dressing, clean, dry, intact - Neurological Neurological Exam: Alert, Oriented x 3, No Facial Droop, Speech Intact / Clear Assessment and Plan - Patient Problems (1) Acute pulmonary embolism Current Visit: Yes Status: Acute Code(s): I26.99 - Other pulmonary embolism without acute cor pulmonale Qualifiers: Pulmonary embolism type: other Acute cor pulmonale presence: without acute cor pulmonale Qualified Code(s): I26.99 - Other pulmonary embolism without acute cor pulmonale (2) Tachycardia Current Visit: Yes Status: Acute Code(s): R00.0 - Tachycardia, unspecified (3) Hypertension Current Visit: Yes Status: Acute Code(s): I10 - Essential (primary) hypertension Qualifiers: Hypertension type: essential hypertension Qualified Code(s): I10 - Essential (primary) hypertension (4) Arthritis of left hip Current Visit: No Status: Acute Code(s): M16.12 - Unilateral primary osteoarthritis, left hip (5) Chronic constipation Current Visit: Yes Status: Chronic Code(s): K59.09 - Other constipation - Assessment / Plan Additional Assessment/Plan Details: Start Lovenox and Coumadin. Get EKG make sure no right heart strain is present. Daily PT and INR. Monitor here for any bleeding and recheck white blood cell count tomorrow. I think tachycardia and leukocytosis are related to pulmonary emboli. Stop aspirin. As with his primary provider in [place], [place] and, she will INRs there as well. Continue PT and OT. Pain control for hip pain. No change in antihypertensive therapy today."
--- NOTE | 2017-04-23 19:51 | EKG ---
[address] [address] Measurements Intervals [place] Rate: 110 P: 48 OR: 168 QRS: -18 QRSD: 90 T: 32 QT: 320 QTc: 385 Interpretive Statements SINUS TACHYCARDIA ABNORMAL RHYTHM ECG No previous ECG available for comparison Electronically Signed On 04-24-17 08:37:16 MST by Irving Browne MD [email or web address]
[2017-04-23] MEDS: Warfarin 5 MG TAB PO SCH (20:25)
[2017-04-24] MEDS: ENOXAPARIN SODIUM 100 MG/1 ML SYRINGE SUBCUT SCH ×2 (03:47→15:31)
[2017-04-24 05:12] LABS: Hematocrit [HCT] 32.5 % (42.0-52.0); Hemoglobin [HGB] 10.4 g/dL (14.0-18.0); MEAN CORPUSCULAR HEMOGLOBIN 29.5 PG (27-31); MEAN CORPUSCULAR VOLUME 92.3 FL (80-90); MEAN PLATELET VOLUME 10.9 FL (7.4-12.2); RED BLOOD COUNT 3.52 10^6/uL (4.70-6.10)
[2017-04-24 05:20] LABS: BLOOD UREA NITROGEN 16 mg/dL (7-22)
[2017-04-24] MEDS: HYDROCHLOROTHIAZIDE 12.5 MG CAPSULE PO SCH (07:13)
[2017-04-24] MEDS: TAMSULOSIN 0.4 MG CAPSULE PO SCH (09:02)
[2017-04-24] MEDS: Multivitamin Tab 1 TAB PO SCH (09:02)
[2017-04-24] MEDS: DOCUSATE 100 MG CAPSULE PO SCH ×2 (09:02→20:36)
[2017-04-24] MEDS: HYDROcodone-APAP 7.5 MG-325 MG TABLET PO PRN ×2 (09:03→20:36)
[2017-04-24] MEDS: POLYETHYLENE GLYCOL 3350 17 GM POWDER PO SCH (09:03)
--- NOTE | 2017-04-24 09:18 | PT PM DAY ---
Diagnosis : Left Total Hip Arthroplasty PM - Physical Therapy S: The patient states his hip pain is about a 3/10 this afternoon. O: The patient ambulated all the way to the physical therapy department. We did work on mat mobility, transfers, sit to stands, stairs, and furthering his ambulatory activities with a walker. A: The patient did very well with his rehab today. He is being kept in the hospital for other medical concerns at this point. We continue to talk about partial weight-bearing as Dr. Langley requests. He still has a tendency to step on it with full weight-bearing quite a bit of the time. A constant reminder is necessary. He is obviously disappointed that he is still in the hospital. P: Continue seeing patient BID during the week and one time per day over the weekend for transfers, ambulation, and range of motion/strengthening exercises. DEMETRA
--- NOTE | 2017-04-24 09:52 | OT PM DAY ---
Diagnosis : Left Total Hip Arthroplasty PM - Occupational Therapy S: The patient states he is going to be staying here for a little while. He is aware of his medical condition. He states he is willing to get up for therapy. O: The patient was seen in his room. He was laying supine in bed. He transferred from supine to edge of bed independently. The patient switched out his walker for a front wheeled walker. He was placed on 1 liter of oxygen for the transfer downstairs. He completed functional transfer x175 feet to therapy. Once he arrived in therapy he completed bed mobility with modified independence as he used his right leg to hook his left leg and transferred from sit to supine. After PT, the patient completed upper extremity exercises with green theraband in all planes x15 bilaterally to increase his strength to assist with postural transition. He transferred approximately 30 feet to arm bike where he completed UBE x6 minutes to increase his activity tolerance. The patient transferred approximately 150 feet back to his room using front wheeled walker and contact guard assist. The patient was left sitting edge of bed with bed alarm on and call light within reach. Nursing was notified. A: The patient is status post left total hip arthroplasty. His hip is doing well but he will remain in the hospital due to other medical conditions. The patient continues to be a little impulsive so we will continue to monitor his transfers and ambulation. The patient remains on one liter of oxygen. P: Continue seeing patient BID during the week and one time per day over the weekend for upper extremity strengthening, ADLs, and overall functional mobility. MTDD
--- NOTE | 2017-04-24 11:33 | PT.PROG ---
Progress Note Progress Note: S. Patient stated that he is feeling much better today compared to yesterday. O. Patient ambulated 150 feet around the nurses station then performed sit to stands x 5 and transferred into bed where he was left with nursing. A. Patient tolerated ambulation well, he was able to ambulate the full distance with one rest break, he required CGA with ambulation. he would continue to benefit from skilled therapy to increase strength and mobility. P. continue POC.
--- NOTE | 2017-04-24 13:37 | ORTHO.PROG ---
Last Taken Vital Signs: Vital Signs - Last Taken Temperature 99 F 04/24/17 12:58 Pulse Rate 106 H 04/24/17 12:58 Respiratory Rate 18 04/24/17 12:58 Blood Pressure 151/84 04/24/17 12:58 Pulse Ox 95 04/24/17 12:58 Subjective: Patient notes that his pain is well controlled on intermittent hydrocodone Objective: Examination of the left leg shows that the patient has some mild to moderate swelling of the leg. Not markedly different from yesterday with the day before. He has a dressing in place which is clean and dry with no active bleeding or drainage. His motor and sensory exam is nonfocal, popliteal adductor hiatus or thigh pain. Laboratory Results 04/23/17 04/24/17 04/24/17 Range/Units 15:10 03:58 03:58 WBC 15.38 H 14.32 H (4.8-10.8) 10^3/uL RBC 3.61 L 3.52 L (4.70-6.10) 10^6/uL Hgb 10.9 L 10.4 L (14.0-18.0) g/dL Hct 33.2 L 32.5 L (42.0-52.0) % MCV 92.0 H 92.3 H (80-90) FL MCH 30.2 29.5 (27-31) PG MCHC 32.8 L 32.0 L (33-37) g/dL RDW Std Deviation 44.1 44.6 (39-50) fL RDW Coeff of Mahesh 13.5 13.6 (11.5-14.5) % Plt Count 180 171 (140-350) 10*3/uL MPV 9.9 10.9 (7.4-12.2) FL Immature Gran % (Auto) 0.3 (0-5) % Neut % (Auto) 77.7 (50-80) % Lymph % (Auto) 10.3 (10-50) % Norman % (Auto) 10.6 (5-15) % Eos % (Auto) 1.0 (0-8) % Baso % (Auto) 0.1 (0-1) % Immature Gran # (Auto) 0.04 10*3/UL Neut # (Auto) 11.94 10*3/UL Lymph # (Auto) 1.59 10*3/uL Norman # (Auto) 1.63 H (0.3-0.8) 10*3/UL Eos # (Auto) 0.16 10*3/UL Baso # (Auto) 0.02 10*3/UL WBC Morphology Comment Normal morphology (NORM) Plt Morphology Comment Normal morphology (NORM) RBC Morph Comment Normal morphology (NORM) PT (9.7-11.4) secs INR (0.00-5.90) N/A Sodium 138 (135-145) meq/L Potassium 4.0 (3.8-5.2) meq/L Chloride 102 (98-112) meq/L Carbon Dioxide 29 (23-33) meq/L Anion Gap 7 (5-20) BUN 16 (7-22) mg/dL Creatinine 0.8 (0.70-1.50) mg/dL BUN/Creatinine Ratio 20.00 (6-20) Glucose 112 H (78-110) mg/dL Calculated Osmolality 287.0 (267-292) mOsm/kg Calcium 8.3 L (8.7-10.7) mg/dL NT-Pro-B Natriuret Pep (0-125) PG/ML 04/24/17 04/24/17 Range/Units 03:58 03:58 WBC (4.8-10.8) 10^3/uL RBC (4.70-6.10) 10^6/uL Hgb (14.0-18.0) g/dL Hct (42.0-52.0) % MCV (80-90) FL MCH (27-31) PG MCHC (33-37) g/dL RDW Std Deviation (39-50) fL RDW Coeff of Mahesh (11.5-14.5) % Plt Count (140-350) 10*3/uL MPV (7.4-12.2) FL Immature Gran % (Auto) (0-5) % Neut % (Auto) (50-80) % Lymph % (Auto) (10-50) % Norman % (Auto) (5-15) % Eos % (Auto) (0-8) % Baso % (Auto) (0-1) % Immature Gran # (Auto) 10*3/UL Neut # (Auto) 10*3/UL Lymph # (Auto) 10*3/uL Norman # (Auto) (0.3-0.8) 10*3/UL Eos # (Auto) 10*3/UL Baso # (Auto) 10*3/UL WBC Morphology Comment (NORM) Plt Morphology Comment (NORM) RBC Morph Comment (NORM) PT 10.3 (9.7-11.4) secs INR 0.97 (0.00-5.90) N/A Sodium (135-145) meq/L Potassium (3.8-5.2) meq/L Chloride (98-112) meq/L Carbon Dioxide (23-33) meq/L Anion Gap (5-20) BUN (7-22) mg/dL Creatinine (0.70-1.50) mg/dL BUN/Creatinine Ratio (6-20) Glucose (78-110) mg/dL Calculated Osmolality (267-292) mOsm/kg Calcium (8.7-10.7) mg/dL NT-Pro-B Natriuret Pep 209 H (0-125) PG/ML Vital Signs (24 hrs) Temp Pulse Pulse Pulse Pulse Resp BP 04/24/17 12:58 99 F 106 H 18 151/84 04/24/17 09:00 99.2 F 102 H 20 133/81 04/24/17 07:00 111 H 97 04/24/17 04:15 04/24/17 03:59 99.7 F H 108 H 12 162/90 04/24/17 03:00 101 H 102 H 04/24/17 00:35 98.9 F 110 H 22 139/91 04/23/17 23:00 109 H 04/23/17 19:26 100.5 F H 118 H 20 138/91 04/23/17 19:00 116 H 116 H 04/23/17 15:57 98.3 F 112 H 19 153/93 04/23/17 15:00 115 H Pulse Ox 04/24/17 12:58 95 04/24/17 09:00 95 04/24/17 07:00 04/24/17 04:15 93 04/24/17 03:59 93 04/24/17 03:00 04/24/17 00:35 94 04/23/17 23:00 04/23/17 19:26 93 04/23/17 19:00 04/23/17 15:57 96 02/08/18 15:00 Assessment: Left total hip replacement doing reasonably well from a pain standpoint. Patient with evidence of a segmental pulmonary embolism and is being treated with therapeutic Lovenox until Coumadin takes effect for anticoagulation. Patient also with fever last PM and early this morning. Anemia Plan: At the current time we will have the patient continue with physical therapy but we will have him a reduce some of the exercises that he does in order to decrease the potential risk of causing bleeding. I think simple activities such as transferring gait and upper extremity activities would be okay. We will follow along closely recheck his labs moving forward and follow closely for any evidence of infection. Patient also with elevation of his body weight question whether he is retaining fluid also
[2017-04-24] MEDS ORDERED: Fleet Enema w/Mineral Oil 133ml RECTAL ONE (16:01)
--- NOTE | 2017-04-24 16:01 | PDOC(PROG) ---
Date and Time of Service: 04/24/2017, 1555 Interval History: Patient seen and evaluated earlier. Was getting echocardiogram. I got a report back on that echocardiogram, and the patient does not have any evidence of right heart strain. He does not complain of any chest pain or shortness of breath. He's had intermittent fevers. I suspected they might be related to pulmonary emboli but they've been fairly persistent so he will workup further with urinalysis. He had no evidence of pneumonia on the CT scan. We'll also get blood cultures. The wound does not look infected. He states his pain is well controlled and he is taking minimal pain medications. He is still not had a good bowel movement. Objective : Data - Labs CBC and BMP: 04/24/17 03:58 04/24/17 03:58 Additional Lab Results: 04/24/17 04/24/17 03:58 03:58 PT 10.3 INR 0.97 NT-Pro-B Natriuret Pep 209 H Objective : Exam - General General Appearance: No Acute Distress, Cooperative Additional General Exam Details: Vital Signs (24 hrs) Temp Pulse Pulse Pulse Pulse Resp BP 04/24/17 12:58 99 F 106 H 18 151/84 04/24/17 11:00 108 H 04/24/17 09:00 99.2 F 102 H 20 133/81 04/24/17 07:00 111 H 97 04/24/17 04:15 04/24/17 03:59 99.7 F H 108 H 12 162/90 04/24/17 03:00 101 H 102 H 04/24/17 00:35 98.9 F 110 H 22 139/91 04/23/17 23:00 109 H 04/23/17 19:26 100.5 F H 118 H 20 138/91 04/23/17 19:00 116 H 116 H 04/23/17 15:57 98.3 F 112 H 19 153/93 Pulse Ox 04/24/17 12:58 95 04/24/17 11:00 04/24/17 09:00 95 04/24/17 07:00 04/24/17 04:15 93 04/24/17 03:59 93 04/24/17 03:00 04/24/17 00:35 94 04/23/17 23:00 02/08/18 19:26 93 04/23/17 19:00 04/23/17 15:57 96 - Eye Eye Exam: No Scleral Icterus - ENT ENT Exam: Mucous Membranes Moist - Respiratory Respiratory Exam: Clear to Auscultation - Bilaterally, Breathing Non Labored - Cardiovascular Cardiovascular Exam: RRR, No Murmur, No Clicks, No Gallops, No Rubs, No JVD Additional Cardiovascular Details: Was finally not tachycardic on my examination earlier today. - GI/Abdominal GI/Abdominal Exam: Normal Bowel Sounds, Non Tender, Non Distended, Soft - Extremities Extremities Exam: No Edema Present, No Cyanosis Present Additional Extremities Exam Details: Right hip is dressed. Dressing is clean, dry, intact. No surrounding erythema - Neurological Neurological Exam: Alert, Oriented x 3, No Facial Droop, Speech Intact / Clear Assessment and Plan - Patient Problems (1) Acute pulmonary embolism Current Visit: Yes Status: Acute Code(s): I26.99 - Other pulmonary embolism without acute cor pulmonale Qualifiers: Pulmonary embolism type: other Acute cor pulmonale presence: without acute cor pulmonale Qualified Code(s): I26.99 - Other pulmonary embolism without acute cor pulmonale (2) Tachycardia Current Visit: Yes Status: Acute Code(s): R00.0 - Tachycardia, unspecified (3) Hypertension Current Visit: Yes Status: Acute Code(s): I10 - Essential (primary) hypertension Qualifiers: Hypertension type: essential hypertension Qualified Code(s): I10 - Essential (primary) hypertension (4) Arthritis of left hip Current Visit: No Status: Acute Code(s): M16.12 - Unilateral primary osteoarthritis, left hip (5) Chronic constipation Current Visit: Yes Status: Chronic Code(s): K59.09 - Other constipation (6) Fever Current Visit: Yes Status: Acute Code(s): R50.9 - Fever, unspecified Qualifiers: Fever type: post-procedural Qualified Code(s): R50.82 - Postprocedural fever - Assessment / Plan Additional Assessment/Plan Details: Unfortunately, the fever is very nonspecific. Could be related to pulmonary emboli and is most likely related to pulmonary emboli, but no symptoms of cough , nausea or vomiting, diarrhea, or any other symptom to suggest infection. However with the persistence of the temperature elevation, and going to go ahead and get a urinalysis, and check blood cultures. I'll wait for urinalysis results before starting any empiric antibiotics. Continue Lovenox and Coumadin therapy. When INR is greater than 2, discontinue Lovenox Check labs in a.m. Continue PT and OT. Due to urinary retention, continue Cheek catheterization and Flomax. He is on day 2 of his catheter.
--- NOTE | 2017-04-24 16:46 | PT.PROG ---
Progress Note Progress Note: S: pt reports he would like to walk today and keep activity light. O: nsg okay'd prior to PT. Pt instructed to perform 3 laps around nsg station 150 feet x 3 with standing rest breaks and CGA x1 and FWW. pt refused any further ther ex today. pt required min assist x 1 for RLE assistance into bed. pt CGA x 1 for sit to stand transfers. pt returned to bed with call light within reach and chair alarm activated. A: pt tolerated therapy well. minimal cuing for walker technique safety. pt continues to benefit from skilled therapy P: cont per POC
[2017-04-24 17:08] LABS: BILIRUBIN,URINE NEGATIVE (NEG); CLARITY,URINE CLEAR (CLEAR); COLOR,URINE YELLOW (Y); GLUCOSE, URINE (UA) NEGATIVE (NEG); OCCULT BLOOD,URINE MODERATE (NEG); PH,URINE 7.5 (5.0-8.5); PROTEIN,URINE 30 mg/dl (NEG)
[2017-04-24 17:13] LABS: BACTERIA,URINE RARE; RBC,URINE 20-30 /hpf; URINE SAMPLE TYPE CATH SPECIMEN
[2017-04-24] MEDS: Warfarin 5 MG TAB PO SCH (20:37)
[2017-04-24] MEDS: BISACODYL 5 MG TABLET PO PRN (20:37)
[2017-04-25] MEDS: HYDROcodone-APAP 7.5 MG-325 MG TABLET PO PRN ×2 (00:39→04:10)
[2017-04-25] MEDS: ENOXAPARIN SODIUM 100 MG/1 ML SYRINGE SUBCUT SCH ×2 (04:04→15:39)
[2017-04-25 05:28] LABS: BASOPHILS # (AUTO) 0.04 10*3/UL; BASOPHILS % (AUTO) 0.3 % (0-1); EOSINOPHILS # (AUTO) 0.38 10*3/UL; EOSINOPHILS % (AUTO) 2.8 % (0-8); Hematocrit [HCT] 32.7 % (42.0-52.0); Hemoglobin [HGB] 10.7 g/dL (14.0-18.0); LYMPHOCYTES # (AUTO) 1.76 10*3/uL; MEAN CORPUSCULAR HEMOGLOBIN 30.3 PG (27-31); MEAN CORPUSCULAR HGB CONC 32.7 g/dL (33-37); MEAN CORPUSCULAR VOLUME 92.6 FL (80-90); MEAN PLATELET VOLUME 10.8 FL (7.4-12.2); MONOCYTES # (AUTO) 1.45 10*3/UL (0.3-0.8); MONOCYTES % (AUTO) 10.7 % (5-15); NEUTROPHILS # (AUTO) 9.91 10*3/UL; NEUTROPHILS % (AUTO) 72.8 % (50-80); RED BLOOD COUNT 3.53 10^6/uL (4.70-6.10)
[2017-04-25 05:35] LABS: PLATELET MORPHOLOGY COMMENT NORMAL MORPHOLOGY (NORM); RBC MORPHOLOGY COMMENT NORMAL MORPHOLOGY (NORM); WBC MORPHOLOGY COMMENT NORMAL MORPHOLOGY (NORM)
[2017-04-25 05:47] LABS: BLOOD UREA NITROGEN 16 mg/dL (7-22)
[2017-04-25] MEDS: HYDROCHLOROTHIAZIDE 12.5 MG CAPSULE PO SCH (06:53)
[2017-04-25] MEDS ORDERED: MAGNESIUM 400 MG/5 ML - 30 ML (MILK OF MAGNESIA) PO PRN (09:46)
--- NOTE | 2017-04-25 10:38 | PT.PROG ---
Progress Note Progress Note: S. Patient stated that he is feeling a little stiff this morning. He reports he has been constipated and isn't feeling well due to that. O. Patient ambulated 175 feet to the therapy gym where he performed seated exercises in the form of; long arc quads, marches, heel toe raises, sit to stands all x 10. Patient used the nu-step x 5 minutes, then ambulated 175 feet back to his room where he was left on the edge of bed with alarm and call light. A. Patient tolerated therapy well this morning, he was able to perform all exercises with no complaints of pain or problems. He enjoyed the nu-step and stated he would like to use it more. He was called back upstairs for a scan therefore was unable to perform more therapy. He would continue to benefit from skilled therapy. P. Continue POC.
--- NOTE | 2017-04-25 11:41 | ORTHO.PROG ---
Last Taken Vital Signs: Vital Signs - Last Taken Temperature 98.4 F 04/25/17 07:16 Pulse Rate 97 04/25/17 07:16 Respiratory Rate 20 04/25/17 07:16 Blood Pressure 138/91 04/25/17 07:16 Pulse Ox 93 04/25/17 07:16 Subjective: Patient would like to have a bowel movement feels constipated which is been a chronic problem for him Objective: Patient's left leg with no marked swelling his PREVENA dressing is in place no active fluid in the container. Patient does have mild swelling to the leg. This is mostly around the upper thigh region. Denies any popliteal adductor hiatus pain. Good motion of the foot and toes and ankles as well as knee Laboratory Results 04/24/17 04/25/17 04/25/17 Range/Units 17:00 04:05 04:05 WBC 13.61 H (4.8-10.8) 10^3/uL RBC 3.53 L (4.70-6.10) 10^6/uL Hgb 10.7 L (14.0-18.0) g/dL Hct 32.7 L (42.0-52.0) % MCV 92.6 H (80-90) FL MCH 30.3 (27-31) PG MCHC 32.7 L (33-37) g/dL RDW Std Deviation 44.2 (39-50) fL RDW Coeff of Mahesh 13.5 (11.5-14.5) % Plt Count 227 (140-350) 10*3/uL MPV 10.8 (7.4-12.2) FL Immature Gran % (Auto) 0.5 (0-5) % Neut % (Auto) 72.8 (50-80) % Lymph % (Auto) 12.9 (10-50) % [place] % (Auto) 10.7 (5-15) % Eos % (Auto) 2.8 (0-8) % Baso % (Auto) 0.3 (0-1) % Immature Gran # (Auto) 0.07 10*3/UL Neut # (Auto) 9.91 10*3/UL Lymph # (Auto) 1.76 10*3/uL [place] # (Auto) 1.45 H (0.3-0.8) 10*3/UL Eos # (Auto) 0.38 10*3/UL Baso # (Auto) 0.04 10*3/UL WBC Morphology Comment Normal morphology (NORM) Plt Morphology Comment Normal morphology (NORM) RBC Morph Comment Normal morphology (NORM) PT 11.9 H (9.7-11.4) secs INR 1.12 (0.00-5.90) N/A Sodium (135-145) meq/L Potassium (3.8-5.2) meq/L Chloride (98-112) meq/L Carbon Dioxide (23-33) meq/L Anion Gap (5-20) BUN (7-22) mg/dL Creatinine (0.70-1.50) mg/dL BUN/Creatinine Ratio (6-20) Glucose (78-110) mg/dL Calculated Osmolality (267-292) mOsm/kg Calcium (8.7-10.7) mg/dL Ur Collection Type Cath specimen Urine Color Yellow (Y) Urine Clarity Clear (CLEAR) Urine pH 7.5 (5.0-8.5) Ur Specific [place] 1.020 (1.005-1.030) Urine Protein 30 A (NEG) mg/dl Urine Glucose (UA) Negative (NEG) mg/dL Urine Ketones Negative (NEG) Urine Occult Blood Moderate H (NEG) Urine Nitrate Negative (NEG) Urine Bilirubin Negative (NEG) Urine Urobilinogen 1.0 (0.2) EU/dL Ur Leukocyte Esterase Trace (NEG) Urine RBC 20-30 (NONE) /hpf Urine WBC 5-7 (NONE) Ur Squamous Epith Cells None (NONE) Ur Renal Epithelial Cell None (NONE) Urine Crystals None Urine Bacteria Rare (NONE) Urine Casts None (NONE) Urine Mucus Few (NONE) Urine Trichomonas None (NONE) Urine Yeast None (NONE) Ur Culture Indicated? Culture set 04/25/17 Range/Units 04:05 WBC (4.8-10.8) 10^3/uL RBC (4.70-6.10) 10^6/uL Hgb (14.0-18.0) g/dL Hct (42.0-52.0) % MCV (80-90) FL MCH (27-31) PG MCHC (33-37) g/dL RDW Std Deviation (39-50) fL RDW Coeff of Mahesh (11.5-14.5) % Plt Count (140-350) 10*3/uL MPV (7.4-12.2) FL Immature Gran % (Auto) (0-5) % Neut % (Auto) (50-80) % Lymph % (Auto) (10-50) % [place] % (Auto) (5-15) % Eos % (Auto) (0-8) % Baso % (Auto) (0-1) % Immature Gran # (Auto) 10*3/UL Neut # (Auto) 10*3/UL Lymph # (Auto) 10*3/uL [place] # (Auto) (0.3-0.8) 10*3/UL Eos # (Auto) 10*3/UL Baso # (Auto) 10*3/UL WBC Morphology Comment (NORM) Plt Morphology Comment (NORM) RBC Morph Comment (NORM) PT (9.7-11.4) secs INR (0.00-5.90) N/A Sodium 137 (135-145) meq/L Potassium 4.1 (3.8-5.2) meq/L Chloride 100 (98-112) meq/L Carbon Dioxide 28 (23-33) meq/L Anion Gap 9 (5-20) BUN 16 (7-22) mg/dL Creatinine 0.8 (0.70-1.50) mg/dL BUN/Creatinine Ratio 20.00 (6-20) Glucose 105 (78-110) mg/dL Calculated Osmolality 284.0 (267-292) mOsm/kg Calcium 8.3 L (8.7-10.7) mg/dL Ur Collection Type Urine Color (Y) Urine Clarity (CLEAR) Urine pH (5.0-8.5) Ur Specific [place] (1.005-1.030) Urine Protein (NEG) mg/dl Urine Glucose (UA) (NEG) mg/dL Urine Ketones (NEG) Urine Occult Blood (NEG) Urine Nitrate (NEG) Urine Bilirubin (NEG) Urine Urobilinogen (0.2) EU/dL Ur Leukocyte Esterase (NEG) Urine RBC (NONE) /hpf Urine WBC (NONE) Ur Squamous Epith Cells (NONE) Ur Renal Epithelial Cell (NONE) Urine Crystals Urine Bacteria (NONE) Urine Casts (NONE) Urine Mucus (NONE) Urine Trichomonas (NONE) Urine Yeast (NONE) Ur Culture Indicated? Vital Signs (24 hrs) Temp Pulse Pulse Pulse Resp BP Pulse Ox 04/25/17 07:16 98.4 F 97 20 138/91 93 04/25/17 07:00 90 04/25/17 05:06 91 04/25/17 04:22 98.9 F 91 20 155/90 94 04/25/17 03:00 94 94 04/25/17 00:38 98.2 F 97 20 151/85 94 04/24/17 23:00 96 96 04/24/17 21:00 99.7 F H 109 H 20 156/90 95 04/24/17 19:00 107 H 04/24/17 16:34 98.5 F 106 H 18 167/83 95 04/24/17 15:00 107 H 04/24/17 12:58 99 F 106 H 18 151/84 95 Assessment: Left anterior total hip replacement Anemia Pulmonary embolism Constipation Plan: Patient will continue with the dual anticoagulation until the Coumadin as he appropriate affect on his INR. We will continue with therapy but not be significantly aggressive to prevent any potential bleeds. Patient has been having a low-grade fever and with chronic constipation and description of his issues with constipation we'll get a CT of the abdomen at the current time.
[2017-04-25] MEDS: Multivitamin Tab 1 TAB PO SCH (12:14)
[2017-04-25] MEDS: TAMSULOSIN 0.4 MG CAPSULE PO SCH (12:14)
[2017-04-25] MEDS: DOCUSATE 100 MG CAPSULE PO SCH ×2 (12:14→20:33)
[2017-04-25] MEDS: POLYETHYLENE GLYCOL 3350 17 GM POWDER PO SCH (13:25)
--- NOTE | 2017-04-25 13:27 | DI ---
EXAM: CT Abdomen and Pelvis With Intravenous Contrast CLINICAL HISTORY: ITS.REASON fever, chronic constipation Physician Notes: Tech Comments: TECHNIQUE: Axial computed tomography images of the abdomen and pelvis with intravenous contrast. COMPARISON: No relevant prior studies available. Findings: Right lower lobe calcified granuloma. 4 mm noncalcified nodule on series 2, image 1, not completely assessed. If there are risk factors for malignancy, would recommend follow-up in 12 months. Right sided pleural calcification likely related to remote infected or bloody pleural effusion, not currently present. Hepatic steatosis. The gallbladder is contracted, but it contains multiple stones including a 1.3 cm calculus in the neck. Wall thickening and possible adjacent edema. Lacking distention, uncertain if this might reflect cholecystitis. Sliding-type hiatal hernia with thickening of the distal esophagus. Fecal retention including inspissated stool distending the rectal vault. Findings would support provided history of constipation. Unremarkable appendix. 4 cm density in the leftward urinary bladder on series 2, image 143. Possible neoplasm. Cystoscopy should be considered. Cheek catheter in place. No hydronephrosis. Aortoiliac atherosclerosis without aneurysm. Fatty umbilical hernia. Left hip prosthesis, likely recently placed given overlying incision with annemarie in place. Ill-defined edema and probable small volume hematoma. No clear active extravasation within limits due to hardware-associated streak artifact. Multilevel thoracolumbar spondylosis. No acute fracture. IMPRESSION: 4 cm bladder mass could reflect neoplasm. Consider cystoscopy. Cholelithiasis with gallbladder wall thickening. However, the gallbladder is not pathologically distended. Inspissated stool distending the rectum supporting provided history of constipation. Small hiatal hernia with thickened distal esophagus. 4 mm RUL nodule. If there are risk factors for malignancy, would recommend 12 month follow-up. Other incidental findings as detailed above.
[2017-04-25] MEDS ORDERED: Fleet Enema w/Mineral Oil 133ml RECTAL ONE (15:00)
--- NOTE | 2017-04-25 15:33 | PDOC(PROG) ---
Date and Time of Service: 04/25/2017, 1525 Interval History: The patient has persistent fever, tachycardia. His white blood cell count, albeit better, still persistently elevated. I did a CT scan of the abdomen and pelvis to look for any potential infection, and initially there was misunderstanding from the patient about whether or not I proceed with the study. I thought I had had disclosed that I wanted to proceed this route if his symptoms persisted into today after yesterday's workup, but the patient could not recall those discussions. All that being said, the CT scan showed a bladder tumor. I disclose this to the patient and he became very obstinate that he did not want any workup and he did not want any evaluation for this. After an extensive discussion of risks and benefits, he stated that he would at least think about her consider seeing a urologist. If he does, we will try to help them arrange an outpatient follow-up for initial evaluation and I have given him a series of questions that he can ask to try and direct his workup towards either bladder scoping under sedation or in an observation setting or in an inpatient setting. He had a bladder scope in the past with his TURP and it hurt him physically very much. There was no numbing involved. The patient has financial concerns about this potential workup as well. I explained to him the risks of potentially dying of a malignancy, and I strongly suspect that given the overall picture this is a malignancy. He seemed fairly aloof to that discussion. In the meantime, he is tolerating his anticoagulation therapy. He does not have any chest pain or shortness of breath. He states therapy is going okay although it is been more limited to try and avoid any bleeding into the surgical bed. Objective : Data - Labs CBC and BMP: 04/25/17 04:05 04/25/17 04:05 - Imaging CT Scan Status: Image Reviewed by Me (There appears to be a irregular mass in the bladder on my view of the CT scan. There is a lot of stool that appears fairly hard throughout the rectum and the intestines.) Objective : Exam - General General Appearance: No Acute Distress, Cooperative Additional General Exam Details: Vital Signs (24 hrs) Temp Pulse Pulse Pulse Resp BP Pulse Ox 04/25/17 12:52 97.6 F 108 H 20 145/87 91 04/25/17 07:16 98.4 F 97 20 138/91 93 04/25/17 07:00 90 04/25/17 05:06 91 04/25/17 04:22 98.9 F 91 20 155/90 94 04/25/17 03:00 94 94 04/25/17 00:38 98.2 F 97 20 151/85 94 04/24/17 23:00 96 96 04/24/17 21:00 99.7 F H 109 H 20 156/90 95 04/24/17 19:00 107 H 04/24/17 16:34 98.5 F 106 H 18 167/83 95 - Eye Eye Exam: No Scleral Icterus - ENT ENT Exam: Mucous Membranes Moist - Respiratory Respiratory Exam: Clear to Auscultation - Bilaterally, Breathing Non Labored - Cardiovascular Cardiovascular Exam: No Murmur, No Clicks, No Gallops, No Rubs, Tachycardia, No JVD - GI/Abdominal GI/Abdominal Exam: Normal Bowel Sounds, Non Tender, Non Distended, Soft - Extremities Extremities Exam: No Clubbing Present, No Edema Present, No Cyanosis Present - Neurological Neurological Exam: Alert, Oriented x 3, No Facial Droop, Speech Intact / Clear, Moves All Extremities Equally - Psychiatric Psychiatric Exam: Anxious, Agitated Assessment and Plan - Patient Problems (1) Bladder mass Current Visit: Yes Status: Acute Code(s): N32.89 - Other specified disorders of bladder (2) Acute pulmonary embolism Current Visit: Yes Status: Acute Code(s): I26.99 - Other pulmonary embolism without acute cor pulmonale Qualifiers: Pulmonary embolism type: other Acute cor pulmonale presence: without acute cor pulmonale Qualified Code(s): I26.99 - Other pulmonary embolism without acute cor pulmonale (3) Tachycardia Current Visit: Yes Status: Acute Code(s): R00.0 - Tachycardia, unspecified (4) Hypertension Current Visit: Yes Status: Acute Code(s): I10 - Essential (primary) hypertension Qualifiers: Hypertension type: essential hypertension Qualified Code(s): I10 - Essential (primary) hypertension (5) Arthritis of left hip Current Visit: No Status: Acute Code(s): M16.12 - Unilateral primary osteoarthritis, left hip (6) Chronic constipation Current Visit: Yes Status: Chronic Code(s): K59.09 - Other constipation (7) Fever Current Visit: Yes Status: Acute Code(s): R50.9 - Fever, unspecified Qualifiers: Fever type: post-procedural Qualified Code(s): R50.82 - Postprocedural fever - Assessment / Plan Additional Assessment/Plan Details: From hospitalist side, I think that the fever and tachycardia and pulmonary embolism are probably hypercoagulable in the state of this bladder mass. I strongly suspect bladder cancer. I discussed with the patient in detail that this would make it a standard of care to switch to Lovenox solely for prevention of DVT/PE if this is a true cancer. I discussed that a urology evaluation to determine whether this is a cancer, would be beneficial to determine both the best anticoagulant to help prevent future DVT and pulmonary emboli, and also may help develop a treatment plan. I explained that if this was something like a transitional cancer, and then it could be that localized treatment would be all the patient would need. However, the patient is very reluctant at this time to proceed with such recommendations. He states that he' ll consider it. He is quite adamant that he really does not want any workup done and doesn't want anything in terms of treatment beyond what we are doing and he wants no further imaging studies. He feels that I did too much with the echocardiogram, and I explained to him that that was done to make sure that he didn't have any significant right ventricular strain with his pulmonary emboli that would indicate that we would need to seek expedited care for dissolving this blood clot, but luckily it shows only mild right ventricular dilation without significant findings on the study to suggest that there is right heart failure. Given all this, it'll be good to my partner will take over the service tomorrow from the hospitalist perspective, but I let him with the overall opinion that he should have a urology evaluation and that if he should decide that he agrees with us, that we would be glad to help him arrange the initial outpatient consultation. On a side note, given that we know this tachycardia and fever now are more fully explained, I think we can discontinue telemetry monitoring. Check PT and INR tomorrow
[2017-04-25] MEDS ORDERED: ACIDOPHILUS/BULGARICUS 1 EACH GRAN.PACK PO ONE (15:34)
[2017-04-25] MEDS: LACTULOSE 20 GM PACKET PO SCH ×2 (16:12→20:33)
[2017-04-25] MEDS ORDERED: Fleet Enema 133ml RECTAL ONE (16:22)
[2017-04-25] MEDS: Warfarin 5 MG TAB PO SCH (20:32)
[2017-04-26] MEDS: ENOXAPARIN SODIUM 100 MG/1 ML SYRINGE SUBCUT SCH ×2 (04:28→15:44)
[2017-04-26] MEDS: HYDROCHLOROTHIAZIDE 12.5 MG CAPSULE PO SCH (07:27)
[2017-04-26] MEDS: TAMSULOSIN 0.4 MG CAPSULE PO SCH (08:37)
[2017-04-26] MEDS: Multivitamin Tab 1 TAB PO SCH (08:37)
[2017-04-26] MEDS: POLYETHYLENE GLYCOL 3350 17 GM POWDER PO SCH (08:37)
[2017-04-26] MEDS: DOCUSATE 100 MG CAPSULE PO SCH ×2 (08:37→20:30)
[2017-04-26] MEDS: LACTULOSE 20 GM PACKET PO SCH ×2 (08:37→20:29)
--- NOTE | 2017-04-26 10:59 | OT.PROG ---
Progress Note Progress Note: S. Patient stated that he is feeling good this morning. O. Patient ambulated 175 feet to the therapy gym where he used the nu-step x 10 minutes, then performed seated exercises in the form of; long arc quads, heel toe raises, marches, ball squeezes, and sit to stands all x 10. Patient ambulated 175 feet back to his room where he was left in the restroom and nursing was notified. A. Patient tolerated therapy well this morning, he was able to complete all exercises with no complaints of pain or problems. Patient became fatigued during sit to stands however was able to complete all exercises. Patient would continue to benefit from skilled therapy at this time. P. continue POC.
--- NOTE | 2017-04-26 11:07 | ORTHO.PROG ---
Last Taken Vital Signs: Vital Signs - Last Taken Temperature 98.6 F 04/26/17 08:24 Pulse Rate 103 H 04/26/17 08:24 Respiratory Rate 18 04/26/17 08:24 Blood Pressure 144/84 04/26/17 08:24 Pulse Ox 91 04/26/17 08:24 Subjective: Patient doing well this morning notes his pain is well-controlled has done therapy he's had a couple bowel movements when yesterday when today feels better. Objective: Examination shows that the PREVENA dressing is in place this no fluid within the canister the leg is relatively supple just mild amount of swelling compared to the other side there does not appear to be any significant seroma. Motor and sensory exam is nonfocal with good pulses and brisk refill Laboratory Results 04/26/17 04/26/17 Range/Units 04:35 04:35 PT 15.7 H (9.7-11.4) secs INR 1.48 (0.00-5.90) N/A Lactic Acid 1.0 (0.70-2.10) MMOL/L Vital Signs (24 hrs) Temp Pulse Pulse Pulse Resp BP Pulse Ox 04/26/17 08:24 98.6 F 103 H 18 144/84 91 04/26/17 04:59 99.6 F 04/26/17 04:41 99.6 F 107 H 20 149/94 91 04/26/17 03:50 91 04/26/17 01:00 96.6 F L 110 H 94 20 170/90 94 04/25/17 20:45 96.6 F L 110 H 20 170/90 94 04/25/17 19:00 111 H 94 20 90 04/25/17 15:40 98.9 F 111 H 20 133/89 90 04/25/17 15:00 117 H 04/25/17 12:52 97.6 F 108 H 20 145/87 91 Assessment: Left total hip replacement patient with a CT scan yesterday which showed a bladder mass about 4 cm. Patient with a segmental pulmonary embolism on anticoagulation with Lovenox therapeutically and is being brought up on Coumadin Plan: Continue with physical therapy, pain control, hopefully his INR is a good level tomorrow we may be able to discontinue his hospitalization for discharge as long as he clears therapy. I think at that point time we may also consider a dressing change. We'll wait until the battery charging is no longer working on the PREVENA.
--- NOTE | 2017-04-26 13:47 | PDOC(PROG) ---
Date and Time of Service: 04/26/2014, 1340 Interval History: Patient is decided in discussion with one of his daughters and his that he would like to proceed with a urology evaluation but would like to arrange consultation in a couple weeks and run that through her primary care provider, Dr. Kimball, and I will discuss that with her. Finally having bowel movements. They've been fairly large. No abdominal pain, nausea, or vomiting. Is not short of breath, no chest pain. Hip pain control is good. Objective : Data - Labs CBC and BMP: 04/25/17 04:05 04/25/17 04:05 Additional Lab Results: 04/26/17 04:35 PT 15.7 H INR 1.48 Objective : Exam - General General Appearance: No Acute Distress, Cooperative Additional General Exam Details: Vital Signs (24 hrs) Temp Pulse Pulse Pulse Resp BP Pulse Ox 04/26/17 11:08 98.8 F 115 H 20 144/79 90 04/26/17 08:24 98.6 F 103 H 18 144/84 91 04/26/17 04:59 99.6 F 04/26/17 04:41 99.6 F 107 H 20 149/94 91 04/26/17 03:50 91 04/26/17 01:00 96.6 F L 110 H 94 20 170/90 94 04/25/17 20:45 96.6 F L 110 H 20 170/90 94 04/25/17 19:00 111 H 94 20 90 04/25/17 15:40 98.9 F 111 H 20 133/89 90 04/25/17 15:00 117 H - Eye Eye Exam: No Scleral Icterus - ENT ENT Exam: Mucous Membranes Moist - Respiratory Respiratory Exam: Clear to Auscultation - Bilaterally, Breathing Non Labored - Cardiovascular Cardiovascular Exam: No Murmur, No Clicks, No Gallops, No Rubs, Tachycardia, No JVD - GI/Abdominal GI/Abdominal Exam: Normal Bowel Sounds, Non Tender, Non Distended, Soft - Extremities Extremities Exam: No Clubbing Present, No Edema Present, No Cyanosis Present - Neurological Neurological Exam: Alert, Oriented x 3, No Facial Droop, Speech Intact / Clear Assessment and Plan - Patient Problems (1) Bladder mass Current Visit: Yes Status: Acute Code(s): N32.89 - Other specified disorders of bladder (2) Acute pulmonary embolism Current Visit: Yes Status: Acute Code(s): I26.99 - Other pulmonary embolism without acute cor pulmonale Qualifiers: Pulmonary embolism type: other Acute cor pulmonale presence: without acute cor pulmonale Qualified Code(s): I26.99 - Other pulmonary embolism without acute cor pulmonale (3) Tachycardia Current Visit: Yes Status: Acute Code(s): R00.0 - Tachycardia, unspecified (4) Hypertension Current Visit: Yes Status: Acute Code(s): I10 - Essential (primary) hypertension Qualifiers: Hypertension type: essential hypertension Qualified Code(s): I10 - Essential (primary) hypertension (5) Arthritis of left hip Current Visit: No Status: Acute Code(s): M16.12 - Unilateral primary osteoarthritis, left hip (6) Chronic constipation Current Visit: Yes Status: Chronic Code(s): K59.09 - Other constipation (7) Fever Current Visit: Yes Status: Acute Code(s): R50.9 - Fever, unspecified Qualifiers: Fever type: post-procedural Qualified Code(s): R50.82 - Postprocedural fever - Assessment / Plan Additional Assessment/Plan Details: will need to see urology for evaluation of bladder mass, finally in agreement to do this but wants to arrange with his primary physician continue coumadin, 7.5 mg on Thursday, and 5 mg every other day of the week, INR in AM finally having BM PT and OT discussed with family in detail.
[2017-04-27] MEDS: ENOXAPARIN SODIUM 100 MG/1 ML SYRINGE SUBCUT SCH (03:52)
[2017-04-27 04:51] LABS: BASOPHILS # (AUTO) 0.07 10*3/UL; BASOPHILS % (AUTO) 0.6 % (0-1); EOSINOPHILS # (AUTO) 0.67 10*3/UL; EOSINOPHILS % (AUTO) 6.1 % (0-8); Hematocrit [HCT] 31.6 % (42.0-52.0); Hemoglobin [HGB] 10.2 g/dL (14.0-18.0); LYMPHOCYTES # (AUTO) 2.68 10*3/uL; MEAN CORPUSCULAR HEMOGLOBIN 29.7 PG (27-31); MEAN CORPUSCULAR HGB CONC 32.3 g/dL (33-37); MEAN CORPUSCULAR VOLUME 91.9 FL (80-90); MEAN PLATELET VOLUME 10.5 FL (7.4-12.2); MONOCYTES # (AUTO) 1.36 10*3/UL (0.3-0.8); MONOCYTES % (AUTO) 12.3 % (5-15); NEUTROPHILS # (AUTO) 6.17 10*3/UL; NEUTROPHILS % (AUTO) 55.8 % (50-80); RED BLOOD COUNT 3.44 10^6/uL (4.70-6.10)
[2017-04-27 05:08] LABS: PLATELET MORPHOLOGY COMMENT NORMAL MORPHOLOGY (NORM); RBC MORPHOLOGY COMMENT NORMAL MORPHOLOGY (NORM); WBC MORPHOLOGY COMMENT NORMAL MORPHOLOGY (NORM)
[2017-04-27 07:24] VITALS: RESP 20
[2017-04-27] MEDS: HYDROCHLOROTHIAZIDE 12.5 MG CAPSULE PO SCH (07:33)
[2017-04-27] MEDS: LACTULOSE 20 GM PACKET PO SCH (08:23)
[2017-04-27] MEDS: POLYETHYLENE GLYCOL 3350 17 GM POWDER PO SCH (08:23)
[2017-04-27] MEDS: TAMSULOSIN 0.4 MG CAPSULE PO SCH (08:24)
[2017-04-27] MEDS: Multivitamin Tab 1 TAB PO SCH (08:24)
[2017-04-27] MEDS: DOCUSATE 100 MG CAPSULE PO SCH (08:24)
--- NOTE | 2017-04-27 12:05 | DCSUMMARY ---
Hospitalization Summary Admit Date: 04/21/2017 Discharge Date: 04/27/17 Primary Diagnosis:: left hip replacement Hospital Course: This is a pleasant 71-year-old male that had end-stage osteoarthritis of the left hip. He had this replaced by Dr. Langley. See his note for further details. The hospital service was consulted to manage hypertension and advise on those medical issues that the patient had. In terms of his hip replacement, he recovered very well, has not had a pain medication in 2 days, he's doing very well with physical therapy. In terms of medical issues, he had several issues occur during the hospital stay. The patient had persistent tachycardia, fevers, and we found this to be related to pulmonary emboli. White blood cell count did trend down to 11.05 at time of discharge. So did improve with treatment of the pulmonary emboli. In the workup, we found a bladder tumor at about 4 cm in size. But could be that this is a bladder cancer. The patient is agreeable to seeing urology on an outpatient basis to have further evaluation, but would like to arrange this through his primary care physician versus having us arrange an appointment for him. In terms of his pulmonary embolus him, his discharge INR will be 1.88. He is on 5 mg of Coumadin daily except for Sundays on which we will does 7-1/2 mg. Today is the fifth day of his Coumadin dosing. He received 3 days of 5 mg, one day of 7-1/2 mg, and today we will go back to 5 mg. The patient developed urinary retention, we placed him on Flomax. He has a Cheek catheter in place as he had over thousand milliliters out in terms of his urinary retention. I've advised him a total of 7 days of Cheek catheter placement before we withdraw the catheter to hopefully help this urinary retention and allow Flomax to take place. We found that the patient had constipation that was chronic, 16 months of presence. We essentially "flogged" the bowel and stimulated both above and below and after multiple enemas, MiraLAX, and other medications, patient finally had a couple of large bowel movements prior to discharge. His CT scan showed that he had dried stool throughout the colon. We have arranged for him to visit with surgery in May to talk about a screening colonoscopy as he has not had one at this point. Given the resolution of the above issues, patient was deemed stable for discharge on 04/27/2017, and he denies any chest pain, shortness breath, nausea or vomiting. He states his hip pain is well controlled. His plan is to spend some time in [place] with a niece that is a physical therapist. Assessment and Plan: 1. As per discharge assessments noted 2. Disposition: Patient is discharged home. 3. Condition on discharge, stable and improved. 4. Diet: regular diet 5. Activities: resume normal activities 6. Follow-Up: 1. See Dr. Kimball this week 2. Urology in the next couple weeks 3. General surgery in May 2017 4. Orthopedics as scheduled 7. Medications at the Time of Discharge: Home Medications 3 Medication Instructions Recorded Confirmed Type multivitamin tablet 1 tab PO DAILY 02/13/17 04/21/17 History hydrochlorothiazide 12.5 mg capsule 12.5 mg PO QDAY cap 04/13/17 04/21/17 History HYDROcodone/APAP 7.5/325 Tab 1 - 2 tab PO Q4H PRN #60 tab 04/23/17 Rx [[place] 7.5/325 Tab] Tamsulosin HCl [Flomax] 0.4 mg PO DAILY #30 cap 04/27/17 Rx Warfarin Sodium [Coumadin] 5 mg PO BEDTIME #35 tab 04/27/17 Rx We will try to arrange some Lovenox sample so that he can continue to bridge this Coumadin therapy for the next couple of days with Lovenox at home. I do not think he'll be able to afford it. 8. Time, care, counseling and coordination of care for this discharge is greater than 30 minutes. Exam - Vitals Vital Signs: Vital Signs Temperature 99.1 F Temperature Source Oral Pulse Rate [Telemetry] 104 Pulse Rate [Bilateral Dorsalis 109 Pedis] Pulse Rate [Apical] 97 Pulse Rate [Pulse Oximeter] 89 Pulse Rate 117 Respiratory Rate 20 Blood Pressure [Left Arm] 158/85 Blood Pressure 152/78 Pulse Ox 90 Oxygen Flow Rate 1 Oxygen Delivery Method Room Air Height 5 ft 11 in Weight 220 lb 6.4 oz - General General Appearance: No Acute Distress, Cooperative - Head Head Exam: Normal Inspection, Normocephalic, Atraumatic - Eye Eye Exam: POSITIVE: No Scleral Icterus - ENT ENT Exam: POSITIVE: Mucous Membranes Moist - Respiratory Respiratory Exam: POSITIVE: Clear to Auscultation - Bilaterally, Breathing Non Labored - Cardiovascular Cardiovascular Exam: POSITIVE: No Murmur, No Clicks, No Gallops, No Rubs, Tachycardia, No JVD - GI/Abdominal GI/Abdominal Exam: POSITIVE: Normal Bowel Sounds, Non Tender, Non Distended, Soft - Extremities Extremities Exam: POSITIVE: No Clubbing Present, No Edema Present, No Cyanosis Present - Neurological Neurological Exam: POSITIVE: Alert, Oriented x 3, No Facial Droop, Speech Intact / Clear - Psychiatric Psychiatric Exam: POSITIVE: Normal Affect, Normal Mood Data Peritnent Studies: 04/24/17 04/25/17 04/26/17 03:58 04:05 04:35 WBC Hgb Hct Plt Count PT INR Sodium 137 Potassium 4.1 Chloride 100 Carbon Dioxide 28 Anion Gap 9 BUN 16 Creatinine 0.8 BUN/Creatinine Ratio 20.00 Glucose 105 Calculated Osmolality 284.0 Lactic Acid 1.0 NT-Pro-B Natriuret Pep 209 H 04/27/17 04/27/17 04:00 04:00 WBC 11.05 H Hgb 10.2 L Hct 31.6 L Plt Count 257 PT 20.1 H INR 1.88 Sodium Potassium Chloride Carbon Dioxide Anion Gap BUN Creatinine BUN/Creatinine Ratio Glucose Calculated Osmolality Lactic Acid NT-Pro-B Natriuret Pep [address] [facility] [place] [address] PH: DD: [phone] FAX: [phone] ~DIAGNOSTIC IMAGING REPORT~ Patient: Paul Ochoa : 1945 Sex: M Age: 71 Exam Name: CT Abdomen/Pelvis W Contrast Exam Date: 04/25/17 Report # : [id number] CPT Code: 54870 EMR/MR #: [id number] Ordering: OLENA DALEY Admiting: Dwaine Langley MD. Primary: HERBERT ASKEW MD. Attending: Dwaine Langley MD. Signed EXAM: CT Abdomen and Pelvis With Intravenous Contrast CLINICAL HISTORY: ITS.REASON fever, chronic constipation Physician Notes: Tech Comments: TECHNIQUE: Axial computed tomography images of the abdomen and pelvis with intravenous contrast. COMPARISON: No relevant prior studies available. Findings: Right lower lobe calcified granuloma. 4 mm noncalcified nodule on series 2, image 1, not completely assessed. If there are risk factors for malignancy, would recommend follow-up in 12 months. Right sided pleural calcification likely related to remote infected or bloody pleural effusion, not currently present. Hepatic steatosis. The gallbladder is contracted, but it contains multiple stones including a 1.3 cm calculus in the neck. Wall thickening and possible adjacent edema. Lacking distention, uncertain if this might reflect cholecystitis. Sliding-type hiatal hernia with thickening of the distal esophagus. Fecal retention including inspissated stool distending the rectal vault. Findings would support provided history of constipation. Unremarkable appendix. 4 cm density in the leftward urinary bladder on series 2, image 143. Possible neoplasm. Cystoscopy should be considered. Cheek catheter in place. No hydronephrosis. Aortoiliac atherosclerosis without aneurysm. Fatty umbilical hernia. Left hip prosthesis, likely recently placed given overlying incision with annemarie in place. Ill-defined edema and probable small volume hematoma. No clear active extravasation within limits due to hardware-associated streak artifact. Multilevel thoracolumbar spondylosis. No acute fracture. IMPRESSION: 4 cm bladder mass could reflect neoplasm. Consider cystoscopy. Cholelithiasis with gallbladder wall thickening. However, the gallbladder is not pathologically distended. Inspissated stool distending the rectum supporting provided history of constipation. Small hiatal hernia with thickened distal esophagus. 4 mm RUL nodule. If there are risk factors for malignancy, would recommend 12 month follow-up. Other incidental findings as detailed above. Dictated By: Bautista Cardenas MD Signed By: 04/25/17 1327 Bautista Cardenas MD [address] [facility] [place] [address] PH: DD: [phone] FAX: [phone] ~DIAGNOSTIC IMAGING REPORT~ Patient: DonAlexandrePaul L : 1945 Sex: M Age: 71 Exam Name: CT CTA Chest Non-Coronary [facility] Exam Date: 04/23/17 Report # : [id number] CPT Code: 29809 EMR/MR #: [id number] Ordering: OLENA DALEY Admiting: Dwaine Langley MD. Primary: HERBERT ASKEW MD. Attending: Dwaine Langley MD. Signed CT CTA Chest Non-Coronary [facility],04/23/2017 11:08 AM: Clinical History: Tachycardia status post surgery. Rule out pulmonary embolism. Previous Exam: None at this facility. Findings: Multiple helically acquired CT images are obtained through the chest following a CT angiogram protocol, and demonstrate a small filling defect within the left posterior lower lobe branch of the pulmonary arteries consistent with a small pulmonary embolism. There is subsegmental atelectasis in the lung bases. There is dense pleural calcifications involving the posterior right pleura. There is calcified granuloma within the right lung base. The aorta is unremarkable. Impression: Small left lower lobe branch pulmonary embolism. Dictated By: 04/23/17 1658 FARHAT VALENZUELA MD. Signed By: 04/23/17 1825 FARHAT VALENZUELA MD. [address] [facility] [place] [address] PH: DD: [phone] FAX: [phone] ~DIAGNOSTIC IMAGING REPORT~ Patient: Paul Ochoa : 1945 Sex: M Age: 71 Exam Name: XR HIP COMPLETE MIN 2VW U/L Exam Date: 04/21/17 Report # : [id number] CPT Code: 28521 EMR/MR #: [id number] Ordering: DWAINE LANGLEY Admiting: Dwaine Langley MD. Primary: HERBERT ASKEW MD. Attending: Dwaine Langley MD. Signed XR HIP COMPLETE MIN 2VW U/L,04/21/2017 11:47 AM: Clinical History: Status post left total hip arthroplasty. Previous Exam: February 03, 2017 Findings: AP and crosstable views of the left hip are obtained, and demonstrate postsurgical changes consistent with a left total hip arthroplasty. There is near complete loss of the joint space of the right hip with osteophyte formation. There is mild osteopenia. Overlying skin annemarie are seen. Impression: Status post left total hip arthroplasty. Advanced degenerative changes of the right hip. Dictated By: 04/22/17 0019 FARHAT VALENZUELA MD. Signed By: 04/22/17 0025 FARHAT VALENZUELA MD. Patient Problems - Patient Problem List (1) Status post left hip replacement Current Visit: Yes Status: Acute Code(s): Z96.642 - Presence of left artificial hip joint Category: Medical (2) Bladder mass Current Visit: Yes Status: Acute Code(s): N32.89 - Other specified disorders of bladder Category: Medical (3) Acute pulmonary embolism Current Visit: Yes Status: Acute Code(s): I26.99 - Other pulmonary embolism without acute cor pulmonale Qualifiers: Pulmonary embolism type: other Acute cor pulmonale presence: without acute cor pulmonale Qualified Code(s): I26.99 - Other pulmonary embolism without acute cor pulmonale Category: Medical (4) Tachycardia Current Visit: Yes Status: Acute Code(s): R00.0 - Tachycardia, unspecified Category: Medical (5) Hypertension Current Visit: Yes Status: Acute Code(s): I10 - Essential (primary) hypertension Qualifiers: Hypertension type: essential hypertension Qualified Code(s): I10 - Essential (primary) hypertension Category: Medical (6) Arthritis of left hip Current Visit: No Status: Acute Code(s): M16.12 - Unilateral primary osteoarthritis, left hip Category: Medical (7) Chronic constipation Current Visit: Yes Status: Chronic Code(s): K59.09 - Other constipation Category: Medical (8) Fever Current Visit: Yes Status: Acute Code(s): R50.9 - Fever, unspecified Qualifiers: Fever type: post-procedural Qualified Code(s): R50.82 - Postprocedural fever Category: Medical
[2017-04-27 13:11] VITALS: BP 161/74; TEMP 99.4; O2SAT 97
--- NOTE | 2017-04-27 17:33 | ORTHO.PROG ---
Last Taken Vital Signs: Vital Signs - Last Taken Temperature 99.4 F 04/27/17 13:00 Pulse Rate 90 04/27/17 13:00 Respiratory Rate 20 04/27/17 13:00 Blood Pressure 161/74 04/27/17 13:00 Pulse Ox 97 04/27/17 13:00 Subjective: Patient notes that he is feeling very good today with no significant pain. Objective: Left incision clean and dry in Laboratory Results 04/27/17 04/27/17 Range/Units 04:00 04:00 WBC 11.05 H (4.8-10.8) 10^3/uL RBC 3.44 L (4.70-6.10) 10^6/uL Hgb 10.2 L (14.0-18.0) g/dL Hct 31.6 L (42.0-52.0) % MCV 91.9 H (80-90) FL MCH 29.7 (27-31) PG MCHC 32.3 L (33-37) g/dL RDW Std Deviation 43.4 (39-50) fL RDW Coeff of Mahesh 13.4 (11.5-14.5) % Plt Count 257 (140-350) 10*3/uL MPV 10.5 (7.4-12.2) FL Immature Gran % (Auto) 0.9 (0-5) % Neut % (Auto) 55.8 (50-80) % Lymph % (Auto) 24.3 (10-50) % [place] % (Auto) 12.3 (5-15) % Eos % (Auto) 6.1 (0-8) % Baso % (Auto) 0.6 (0-1) % Immature Gran # (Auto) 0.10 10*3/UL Neut # (Auto) 6.17 10*3/UL Lymph # (Auto) 2.68 10*3/uL [place] # (Auto) 1.36 H (0.3-0.8) 10*3/UL Eos # (Auto) 0.67 10*3/UL Baso # (Auto) 0.07 10*3/UL WBC Morphology Comment Normal morphology (NORM) Plt Morphology Comment Normal morphology (NORM) RBC Morph Comment Normal morphology (NORM) PT 20.1 H (9.7-11.4) secs INR 1.88 (0.00-5.90) N/A Vital Signs (24 hrs) Temp Pulse Pulse Resp BP Pulse Ox 04/27/17 13:00 99.4 F 90 20 161/74 97 04/27/17 07:22 99.1 F 89 20 158/85 90 04/27/17 03:28 98.9 F 92 18 157/85 92 04/27/17 00:25 98.6 F 99 18 147/91 92 04/26/17 18:47 105 H 104 H 04/26/17 18:25 99.0 F 105 H 18 159/91 96 therapy remove dressing in states that incision looked good no active issues very mild to moderate swelling. No Pain popliteal adductor hiatus or thigh pain. Assessment: Patient with left hip replacement multiple issues on admission to include a segmental pulmonary lobe embolism, evidence on CT scan of a bladder tumor, extensive constipation chronic in nature, anemia, left total hip replacement, low-grade fevers of unknown origin Plan: At the current time patient is near therapeutic on his Coumadin will be sent home he will do gentle therapy at the current time we will follow his INR closely. Because of cost of medication will apparently just beyond the warfarin initially. 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 Call immediately for increasing fevers or increasing pain in the leg currently has no pain or discomfort and is doing very well. Patient does have a Cheek in place because of trouble in the past and will have this discontinued at 1 week and continue on Flomax should follow up with urologist normally for this but also for potential bladder tumor.
--- NOTE | 2017-04-28 11:10 | OT AM DAY ---
Diagnosis : Left Total Hip Arthroplasty AM - Occupational Therapy S: The patient will probably be leaving for [place] this afternoon to go and live with his daughter; however, he did have a blood clot this weekend that they have been treating. O: Today the patient completed upper extremity strengthening activities including red theraband resisted horizontal abduction, biceps curls, triceps, diagonal patterns, and internal/external rotation. A: Overall the patient did well. P: Continue seeing patient BID during the week and one time per day over the weekend until discharge. MTDD
--- NOTE | 2017-04-28 11:14 | PT AM DAY ---
Diagnosis : Left Total Hip Arthroplasty AM - Physical Therapy S: The patient states his hip is feeling good this morning. O: The patient ambulated 175 feet to therapy where he performed therapeutic exercises and functional activities including long arc quads, heel/toe raises, marches, heel slides, quad sets, glut sets, ankle pumps, and sit to stands. The patient then ambulated 500 feet upstairs and around the nurse's station. The patient was left in room with call light within reach. A: The patient tolerated today's treatment well. P: Continue seeing patient BID during the week and one time per day over the weekend for transfers, ambulation, and range of motion/strengthening exercises. MTDD
--- NOTE | 2017-04-28 12:00 | PT PM DAY ---
Diagnosis : Left Total Hip Arthroplasty PM - Physical Therapy S: Physical therapy got a call from the nursing staff, stating that the doctor wanted Paul's dressing change prior to him being discharged this afternoon. They would like a Silverlon put on over his incision. O: Treatment consisted of removing the dressing that was on his incision and replacing it with a Silverlon bandage. A: The patient's incision looked good with annemarie in place. Silverlon was put on and patient was instructed to keep Silverlon on until his next follow up appointment. P: Patient is to be discharged this afternoon. DEMETRA
== END 2017-04-27 15:29 | disposition home or self-care (01) | DRG 470 ==
LOC: OPS 04-21 05:47 → MED/SURG 04-21 11:48
PROVIDERS: ADMIT Orthopaedic Surgery; ATTEND Orthopaedic Surgery